=== PATIENT | male | born 1980 | race Caucasian/White ===

== ENCOUNTER 2016-10-14 00:31 | Emergency (ER) | payer OTHER ==
[~2016-10-14] VITALS: Ht 175.3 cm; Wt 63.5 kg
[~2016-10-14 00:31] MED LIST: ABILIFY2 MG ORAL; AMOXIL250 MG ORAL; DILANTIN100 MG ORAL; DILANTIN30 MG ORAL; PANTOPRAZOLE SO40 MG ORAL; QUETIAPINE FUMA25 MG ORAL
[2016-10-14 00:32] VITALS: BP 108/63
[2016-10-14] MEDS ORDERED: PEPCID40 MG PO (01:05)
[2016-10-14 01:15] VITALS: BP 108/63
--- NOTE | 2016-10-14 01:27 | Emergency Room Report ---
History of Present Illness General Chief Complaint: Abdominal Pain Source: Patient Present Illness HPI Patient presents with complaints of abdominal pain Mainly epigastric Reports nausea but no vomiting Denies any chest pain or shortness of breath denies any back or flank pain The discomfort started several days ago Patient does report alcohol ingestion Upon arrival the patient's with the cafeteria And returned eating a bag of hot flaming chips He states that they're not that spicy and that he was feeling hungry Patient is reporting discomfort with the oral intake Denies any fall or trauma Allergies: Coded Allergies: No Known Allergies (Unverified , 09/19/15) Patient History Past Medical History: see triage record Pertinent Family History: none Reviewed Nursing Documentation: PMH: Agreed, PSxH: Agreed Nursing Documentation-PMH Past Medical History: No Stated History Hx Seizures: Yes Review of Systems All Other Systems: negative except mentioned in HPI Physical Exam Vital Signs Date Time Temp Pulse Resp B/P Pulse Ox O2 Delivery O2 Flow Rate FiO2 10/14/16 00:23 107 16 108/63 97 Room Air Sp02 EP Interpretation: reviewed, normal General Appearance: well appearing, no apparent distress Head: normocephalic, atraumatic Eyes: bilateral eye EOMI, bilateral eye PERRL ENT: hearing grossly normal, normal pharynx, TMs + canals normal, uvula midline Neck: full range of motion, supple, no meningismus, no bony tend Respiratory: lungs clear, normal breath sounds, no rhonchi, no respiratory distress, no retraction, no accessory muscle use Cardiovascular #1: normal peripheral pulses, regular rate, rhythm, no edema, no gallop, no JVD, no murmur Gastrointestinal: normal bowel sounds, non tender, soft, no mass, no organomegaly, non-distended, no guarding, no hernia, no pulsatile mass, no rebound Genitourinary: no CVA tenderness Musculoskeletal: normal inspection Neurologic: oriented x3, responsive, research assoc III-XII nml as tested, motor strength/ tone normal, sensory intact Psychiatric: mood/affect normal Skin: normal color, no rash, warm/dry, palpation normal Lymphatic: normal inspection, no adenopathy Medical Decision Making Diagnostic Impression: Primary Impression: Abdominal pain ER Course With the history exam and presentation, multiple differentials considered, including but not limited to appendicitis, gastritis, cholecystitis, diverticulitis Upon arrival the patient left the emergency room to go to the [facility] Patient purchased some chips and is taking oral intake without any discomfort Abdominal exam is fairly benign as well Given the patient's resolution and repeat evaluation He is stable for initial conservative outpatient trial Last Vital Signs Date Time Temp Pulse Resp B/P Pulse Ox O2 Delivery O2 Flow Rate FiO2 10/14/16 00:23 107 16 108/63 97 Room Air Status: improved Disposition: HOME, SELF-CARE Condition: Improved Scripts Famotidine (PEPCID) 40 Mg Tablet 40 MG PO DAILY, #7 TAB 0 Refills Prov: ANGELA STEPHENSON D.O. 10/14/16 Patient Instructions: Abdominal Pain, Adult Additional Instructions: Patient is provided with the discharge instructions notified to follow up with primary doctor in the next 2-3 days otherwise return to the er with any worsening symptoms. ANGELA STEPHENSON D.O. Oct 14, 2016 01:27
[2016-10-15] MEDS ORDERED: PROZAC10 MG ORAL (19:47)
[2016-10-15] MEDS ORDERED: SEROQUEL50 MG ORAL (19:47)
[2016-10-15] MEDS ORDERED: REGLAN10 MG ORAL (23:34)
[2016-10-15] MEDS ORDERED: PROTONIX40 MG ORAL (23:34)
[2016-10-15] MEDS ORDERED: CARAFATE1 G1 ORAL (23:34)
[2016-10-15] MEDS ORDERED: VITAMIN D1000 UNI1 ORAL (23:34)
== END 2016-10-14 01:15 | disposition home or self-care (01) ==
LOC: EDBD 00:31 → EMR 00:56
DX: R10.13 Epigastric pain (principal)
CPT/HCPCS: 99283

== ENCOUNTER 2016-10-15 19:48 | Emergency (ER) | payer OTHER ==
[~2016-10-15] VITALS: Ht 167.6 cm; Wt 70.3 kg
[~2016-10-15 19:48] MED LIST changes: +PEPCID40 MG PO; +PROZAC10 MG ORAL; +SEROQUEL50 MG ORAL
[2016-10-15 20:05] VITALS: BP 146/96
[2016-10-15 20:30] VITALS: BP 146/96
[2016-10-15] MEDS ORDERED: CARAFATE1 G1 ORAL (23:34)
[2016-10-15] MEDS ORDERED: PROTONIX40 MG ORAL (23:34)
[2016-10-15] MEDS ORDERED: REGLAN10 MG ORAL (23:34)
[2016-10-15] MEDS ORDERED: VITAMIN D1000 UNI1 ORAL (23:34)
--- NOTE | 2016-10-16 09:45 | Emergency Room Report ---
History of Present Illness General Chief Complaint: Alcohol Intoxication Source: Medical Record, EMS Present Illness HPI Patient allegedly brought in by EMS for alcohol intoxication. According to the EMS record c/o 12 hours of abdominal pain. Was allegedly uncooperative in field. Apparently placed in W/R. Allergies: Coded Allergies: No Known Allergies (Unverified , 09/19/15) Patient History Past Medical History: see triage record Social History: Reports: alcohol use Social History Narrative gives [place] address Reviewed Nursing Documentation: PMH: Agreed, PSxH: Agreed Nursing Documentation-PMH Hx Seizures: Yes Physical Exam Vital Signs Date Time Temp Pulse Resp B/P Pulse Ox O2 Delivery O2 Flow Rate FiO2 10/15/16 19:42 97.7 80 16 146/96 99 Room Air Sp02 EP Interpretation: reviewed, normal Medical Decision Making Diagnostic Impression: Primary Impression: NSBMD Additional Impressions: Alleged alcohol ingestion Abdominal pain ER Course Patient was not in Department when I looked for patient. Last Vital Signs Date Time Temp Pulse Resp B/P Pulse Ox O2 Delivery O2 Flow Rate FiO2 10/15/16 20:30 97.7 16 146/96 99 Room Air 10/15/16 20:05 89 Disposition: ELOPED Condition: Unknown Referrals: Thomas MANCINI,REFERRING (PCP) Dewey Rae M.D. Oct 16, 2016 09:45
== END 2016-10-15 22:00 | disposition left against medical advice (07) ==
LOC: EDBD 19:48 → EMR 21:33
DX: R10.9 Unspecified abdominal pain (principal); Z53.21 Procedure and treatment not carried out due to patient leaving prior to being seen by health care provider

== ENCOUNTER 2016-10-19 01:54 | Emergency (ER) | payer OTHER ==
[~2016-10-19] VITALS: Ht 175.3 cm; Wt 63.5 kg
[~2016-10-19 01:54] MED LIST changes: +CARAFATE1 G1 ORAL; +PROTONIX40 MG ORAL; +REGLAN10 MG ORAL; +VITAMIN D1000 UNI1 ORAL
[2016-10-19] MEDS ORDERED: UNOBMED (02:00)
[2016-10-19] MEDS ORDERED: Phenytoin 100mg cap ORAL STA (02:07)
[2016-10-19] MEDS ORDERED: Ketorolac 30mg Inj IV ONE (02:15)
--- NOTE | 2016-10-19 02:15 | Emergency Room Report ---
History of Present Illness General Chief Complaint: Alcohol Intoxication Source: Patient Present Illness HPI The patient presents with abdominal pain. Epigastric radiates towards his back. She's also felt nauseated. There's been no vomiting. His stools are loose the patient can he denies any blood or melena. He's had pain like this before and states is secondary to pancreatitis. He has not taken any pain medication at home. These come quite a bit of alcohol this afternoon. He denies ulcers or GERD. He's had some feverish feelings and some chills. He also has a mildly productive cough that's chronic of green phlegm he has he smokes he says. Denies any chest pain or palpitations. The patient last took his seizure medication which is Dilantin 2 days ago. He states that he had a seizure that day. He has not been taking Dilantin because been drinking alcohol. The patient also states his bipolar schizophrenic and has been off his medications. He states he usually takes Seroquel and Risperdal. 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 Reviewed Nursing Documentation: PMH: Agreed, PSxH: Agreed Nursing Documentation-PM History Of Psychiatric Problem: Yes - bipolar Hx Seizures: Yes Review of Systems All Other Systems: negative except mentioned in HPI Physical Exam Vital Signs Date Time Temp Pulse Resp B/P Pulse Ox O2 Delivery O2 Flow Rate FiO2 10/19/16 01:55 98.2 98 20 129/69 99 Room Air Sp02 EP Interpretation: reviewed, normal General Appearance: well appearing, no apparent distress, GCS 15, other - alcohol on breath Head: normocephalic Eyes: bilateral eye PERRL, bilateral eye other ENT: moist mucus membranes - poor dentition Neck: supple Respiratory: lungs clear, normal breath sounds Cardiovascular #1: regular rate, rhythm Cardiovascular #2: 2+ radial (R) Gastrointestinal: normal inspection, normal bowel sounds, no mass, non- distended, no guarding, no rebound, tenderness Musculoskeletal: back normal, gait/station normal, normal range of motion Neurologic: alert, oriented x3, grossly normal Psychiatric: mood/affect normal Skin: normal inspection, warm/dry, other - bites Medical Decision Making Diagnostic Impression: Primary Impression: Abdominal pain Qualified Codes: R10.13 - Epigastric pain Additional Impression: Acute alcoholic intoxication Qualified Codes: F10.129 - Alcohol abuse with intoxication, unspecified ER Course Patient presents with alcohol intoxication and abdominal pain. Differential includes peritonitis, GERD, gastritis, acute ulcer disease, electrolyte abnormality. He also says that he's not been taking his medications. Urgent evaluation is undertaken with labs, and the patient will treated with IV hydration and Toradol as he denies history of ulcer disease. Additional Dilantin level rechecked in the given by mouth Dilantin here. Told patient bleeding and blood count critically low. He understands but refuses rectal exam. Labs also sig for barbiturates. Patient sleeping. States he has dilantin. Discharge pending ambulatory status. Laboratory Tests Test 10/19/16 02:10 White Blood Count 3.1 K/UL (4.8-10.8) L Red Blood Count 3.48 M/UL (4.70-6.10) L Hemoglobin 8.9 G/DL (14.2-18.0) L Hematocrit 28.7 % (42.0-52.0) L Mean Corpuscular Volume 83 FL (80-99) Mean Corpuscular Hemoglobin 25.7 PG (27.0-31.0) L Mean Corpuscular Hemoglobin Concent 31.2 G/DL (32.0-36.0) L Red Cell Distribution Width 17.0 % (11.6-14.8) H Platelet Count 368 K/UL (150-450) Mean Platelet Volume 5.2 FL (6.5-10.1) L Neutrophils (%) (Auto) % (45.0-75.0) Lymphocytes (%) (Auto) % (20.0-45.0) Monocytes (%) (Auto) % (1.0-10.0) Eosinophils (%) (Auto) % (0.0-3.0) Basophils (%) (Auto) % (0.0-2.0) Neutrophils % (Manual) Pending Lymphocytes % (Manual) Pending Platelet Estimate Pending Platelet Morphology Pending Urine Color Pale yellow Urine Appearance Clear Urine pH 7 (4.5-8.0) Urine Specific Jewell 1.005 (1.005-1.035) Urine Protein Negative (NEGATIVE) Urine Glucose (UA) Negative (NEGATIVE) Urine Ketones Negative (NEGATIVE) Urine Occult Blood Negative (NEGATIVE) Urine Nitrite Negative (NEGATIVE) Urine Bilirubin Negative (NEGATIVE) Urine Urobilinogen Normal MG/DL (0.0-1.0) Urine Leukocyte Esterase Negative (NEGATIVE) Sodium Level 144 mEQ/L (135-145) Potassium Level 3.7 mEQ/L (3.4-4.9) Chloride Level 101 mEQ/L (98-107) Carbon Dioxide Level 30 mEQ/L (20-30) Anion Gap 13 (5-15) Blood Urea Nitrogen 8 mg/dL (7-23) Creatinine 0.6 mg/dL (0.7-1.2) L Estimate Glomerular Filtration Rate > 60 mL/min (>60) Glucose Level 101 mg/dL (74-106) Calcium Level 8.4 mg/dL (8.6-10.2) L Total Bilirubin < 0.2 mg/dL (0.0-1.2) Aspartate Amino Transferase (AST) 69 U/L (5-40) H Alanine Aminotransferase (ALT) 31 U/L (3-41) Alkaline Phosphatase 73 U/L (40-129) Total Protein 6.4 g/dL (6.6-8.7) L Albumin 4.1 g/dL (3.5-5.2) Globulin 2.3 g/dL Albumin/Globulin Ratio 1.7 (1.0-2.7) Lipase 57 U/L (< 60) Salicylates Level < 1 mg/dL (10-30) L Urine Opiates Screen Negative (NEGATIVE) Acetaminophen Level < 10 ug/mL (10-30) L Urine Barbiturates Screen Positive (NEGATIVE) H Phenytoin (Dilantin) Level < 0.8 ug/mL (10-20) L Phencyclidine (PCP) Screen Negative (NEGATIVE) Urine Amphetamines Screen Negative (NEGATIVE) Urine Benzodiazepines Screen Negative (NEGATIVE) Urine Cocaine Screen Negative (NEGATIVE) Urine Marijuana (THC) Screen Negative (NEGATIVE) Serum Alcohol 469 mg/dL Last Vital Signs Date Time Temp Pulse Resp B/P Pulse Ox O2 Delivery O2 Flow Rate FiO2 10/19/16 07:47 98.7 85 14 109/66 96 Room Air Status: improved Disposition: HOME, SELF-CARE Condition: Improved Scripts Famotidine (PEPCID) 20 Mg Tablet 20 MG ORAL DAILY, #30 TAB 0 Refills Prov: Dewey Rae M.D. 10/19/16 Acetaminophen (Tylenol) 325 Mg Tablet 650 MG ORAL Q6H Y for Prn Pain/Headache/Temp > 101, #30 TAB 0 Refills Prov: Dewey Rae M.D. 10/19/16 Dewey Rae M.D. Oct 19, 2016 02:15
[2016-10-19] MEDS ORDERED: Tubing IV Cassette IV ONE (02:20)
[2016-10-19 02:27] LABS: APPEARANCE,URINE CLEAR; KETONES,URINE NEGATIVE (NEGATIVE); LEUKOCYTE ESTERASE ,URINE NEGATIVE (NEGATIVE); MEAN CORPUSCULAR HEMOGLOBIN 25.7 PG (27.0-31.0); MEAN CORPUSCULAR HGB CONC 31.2 G/DL (32.0-36.0); MEAN CORPUSCULAR VOLUME 83 FL (80-99); MEAN PLATELET VOLUME 5.2 FL (6.5-10.1); NITRITE,URINE NEGATIVE (NEGATIVE); PH,URINE 7 (4.5-8.0); PLATELET COUNT 368 K/UL (150-450); PROTEIN,URINE NEGATIVE (NEGATIVE); RED BLOOD COUNT 3.48 M/UL (4.70-6.10); UROBILINOGEN,URINE NORMAL MG/DL (0.0-1.0); WHITE BLOOD COUNT 3.1 K/UL (4.8-10.8)
[2016-10-19 02:38] LABS: ACETAMINOPHEN < 10 ug/mL (10-30); ALANINE AMINOTRANSFERASE 31 U/L (3-41); ALBUMIN/GLOBULIN RATIO 1.7 (1.0-2.7); ANION GAP 13 (5-15); ASPARTATE AMINO TRANSFERASE 69 U/L (5-40); CALCIUM 8.4 mg/dL (8.6-10.2); CARBON DIOXIDE 30 mEQ/L (20-30); CHLORIDE 101 mEQ/L (98-107); CREATININE 0.6 mg/dL (0.7-1.2); GLOMERULAR FILTRATION RATE > 60 mL/min (>60); HEMOLYSIS 1; LIPASE 57 U/L (< 60); POTASSIUM 3.7 mEQ/L (3.4-4.9); SODIUM 144 mEQ/L (135-145); TOTAL PROTEIN 6.4 g/dL (6.6-8.7)
[2016-10-19 02:44] LABS: ALCOHOL 469 mg/dL
[2016-10-19 03:40] VITALS: BP 105/70
[2016-10-19] MEDS ORDERED: PEPCID20 MG ORAL (04:50)
[2016-10-19] MEDS ORDERED: TYLENOL325 MG ORAL (04:50)
[2016-10-19 05:31] VITALS: BP 100/56
[2016-10-19 07:06] VITALS: BP 109/66
[2016-10-19 07:47] VITALS: BP 109/66
[2016-10-19 08:45] LABS: ANISOCYTOSIS 1+; BAND NEUTROPHILS % (MANUAL) 0 % (0-8); BASOPHILS % (MANUAL) 1 % (0-2); EOSINOPHILS % (MANUAL) 7 % (0-3); HYPOCHROMASIA 1+; LYMPHOCYTES % (MANUAL) 40 % (20-45); NEUTROPHILS % (MANUAL) 47 % (45-75); PLATELET ESTIMATE ADEQUATE; PLATELET MORPHOLOGY NORMAL; TOTAL CELLS COUNTED 100
[2016-10-20] MEDS ORDERED: ZOFRAN ODT4 MG ORAL ×2 (18:48→21:18)
[2016-10-20] MEDS ORDERED: PEPCID AC20 M2 PO (18:48)
[2016-10-20] MEDS ORDERED: PEPCID20 MG ORAL (21:18)
== END 2016-10-19 07:57 | disposition home or self-care (01) ==
LOC: EDUNIT# 01:54 → EDBD 01:54 → EMR 02:37
DX: R10.13 Epigastric pain (principal); F10.129 Alcohol abuse with intoxication, unspecified; R11.0 Nausea; F17.200 Nicotine dependence, unspecified, uncomplicated; F12.929 Cannabis use, unspecified with intoxication, unspecified; R05 Cough; G40.909 Epilepsy, unspecified, not intractable, without status epilepticus; Z86.59 Personal history of other mental and behavioral disorders; Z59.0 Homelessness
CPT/HCPCS: 36415; 80053; 80185; 80300; 80329; 81003; 83690; 85007; 85025; 96361; 96374; 96375; 99284; J1885; J2405

== ENCOUNTER 2016-10-20 17:43 | Emergency (ER) | payer OTHER ==
[~2016-10-20] VITALS: Ht 172.7 cm; Wt 59.0 kg
[~2016-10-20 17:43] MED LIST changes: +PEPCID20 MG ORAL; +TYLENOL325 MG ORAL; +UNOBMED
[2016-10-20 17:45] VITALS: BP 130/76
--- NOTE | 2016-10-20 17:50 | Emergency Room Report ---
History of Present Illness General Chief Complaint: Alcohol Intoxication Source: Patient, EMS Present Illness HPI Paramedics reported the patient was at [facility] Appear to be intoxicated and therefore was kicked out of the restaurant At that point patient had the complaining of epigastric discomfort He also does report alcohol ingestion including beer Here he does complain of epigastric discomfort nausea Denies any fevers or chills denies any chest pain or shortness of breath Denies any back or flank pain patient has a burning sensation epigastric Allergies: Coded Allergies: No Known Allergies (Unverified , 10/19/16) Patient History Past Medical History: see triage record Pertinent Family History: none Reviewed Nursing Documentation: PMH: Agreed, PSxH: Agreed Nursing Documentation-PMH Past Medical History: No Stated History Hx Seizures: Yes Review of Systems All Other Systems: negative except mentioned in HPI Physical Exam Vital Signs Date Time Temp Pulse Resp B/P Pulse Ox O2 Delivery O2 Flow Rate FiO2 10/20/16 17:36 97.9 74 16 130/76 98 Room Air Sp02 EP Interpretation: reviewed, normal General Appearance: well appearing - However appears mildly disheveled, patient was also verbally abusive with the staff, no apparent distress Head: normocephalic, atraumatic Eyes: bilateral eye EOMI, bilateral eye PERRL ENT: hearing grossly normal, normal pharynx, TMs + canals normal, uvula midline Neck: full range of motion, supple, no meningismus, no bony tend Respiratory: lungs clear, normal breath sounds, no rhonchi, no respiratory distress, no retraction, no accessory muscle use Cardiovascular #1: normal peripheral pulses, regular rate, rhythm, no edema, no gallop, no JVD, no murmur Gastrointestinal: normal bowel sounds, non tender, soft, no mass, no organomegaly, non-distended, no guarding, no hernia, no pulsatile mass, no rebound Musculoskeletal: normal inspection Neurologic: oriented x3, responsive, motor strength/tone normal, sensory intact Psychiatric: mood/affect normal Skin: no rash, warm/dry, palpation normal Lymphatic: normal inspection, no adenopathy Medical Decision Making Diagnostic Impression: Primary Impression: Abdominal pain ER Course Patient has multiple differentials considered Including but not limited to cholecystitis, hepatitis, gastritis Patient however is taking oral intake States that he is hungry Was no signs of any acute distress patient was provided with Zofran and observed Was told into the patient's workup that he had walked out of the emergency room Patient appears to be stable hemodynamically on last eval And will have close outpatient followup , Last Vital Signs Date Time Temp Pulse Resp B/P Pulse Ox O2 Delivery O2 Flow Rate FiO2 10/20/16 17:36 97.9 74 16 130/76 98 Room Air Status: improved Disposition: HOME, SELF-CARE Condition: Improved Scripts Ondansetron Odt* (ZOFRAN ODT*) 4 Mg Tab.rapdis 4 MG ORAL Q6H Y for Nausea & Vomiting, #10 TAB 0 Refills Prov: ANGELA STEPHENSON D.O. 10/20/16 Famotidine (PEPCID AC) 20 Mg Tablet 20 MG PO DAILY for 7 Days, TAB Prov: ANGELA STEPHENSON D.O. 10/20/16 Additional Instructions: Please note the patient left before getting prescription or discharge instructions ANGELA STEPHENSON D.O. Oct 20, 2016 17:50
[2016-10-20] MEDS ORDERED: ZOFRAN ODT4 MG ORAL ×2 (18:48→21:18)
[2016-10-20] MEDS ORDERED: PEPCID AC20 M2 PO (18:48)
[2016-10-20] MEDS ORDERED: Dicyclomine HCl 10mg/5ml oral soln ORAL ONE (19:00)
[2016-10-20] MEDS ORDERED: Lidocaine 2% Visc 15ml soln ORAL ONE (19:00)
[2016-10-20] MEDS ORDERED: Mylanta II UD 30ml ORAL ONE (19:00)
[2016-10-20 19:05] VITALS: BP 130/80
[2016-10-20] MEDS ORDERED: PEPCID20 MG ORAL (21:18)
== END 2016-10-20 19:05 | disposition home or self-care (01) ==
LOC: EDBD 17:43 → EMR 18:00
DX: R10.9 Unspecified abdominal pain (principal); R11.0 Nausea
CPT/HCPCS: 99282

== ENCOUNTER 2016-10-20 21:09 | Emergency (ER) | payer OTHER ==
[~2016-10-20] VITALS: Ht 175.3 cm; Wt 63.5 kg
[~2016-10-20 21:09] MED LIST changes: +PEPCID AC20 M2 PO; +ZOFRAN ODT4 MG ORAL
[2016-10-20] MEDS ORDERED: PEPCID20 MG ORAL (21:18)
[2016-10-20] MEDS ORDERED: ZOFRAN ODT4 MG ORAL (21:18)
--- NOTE | 2016-10-20 21:20 | Emergency Room Report ---
History of Present Illness General Source: Patient Present Illness HPI Patient was recently here Left before getting any paperwork And now has been brought back by paramedics Sleeping on the sidewalk Patient denies any headache States that his stomach pain from before was better as well He reports that he does not have any desire to go through rehabilitation He wants to continue drinking Denies any other fall or trauma since leaving the hospital Allergies: Coded Allergies: No Known Allergies (Unverified , 10/19/16) Patient History Past Medical History: see triage record Pertinent Family History: none Reviewed Nursing Documentation: PMH: Agreed, PSxH: Agreed Nursing Documentation-PMH Hx Seizures: Yes Review of Systems All Other Systems: negative except mentioned in HPI Physical Exam Sp02 EP Interpretation: reviewed, normal General Appearance: no apparent distress Head: normocephalic, atraumatic Eyes: bilateral eye EOMI, bilateral eye PERRL ENT: normal pharynx, no angioedema Neck: supple Respiratory: lungs clear, normal breath sounds Cardiovascular #1: regular rate, rhythm, no edema Gastrointestinal: soft, no mass Musculoskeletal: normal inspection Neurologic: alert, oriented x3, responsive Skin: other - Patient is disheveled Lymphatic: no adenopathy Medical Decision Making Diagnostic Impression: Primary Impression: Abdominal pain Additional Impression: Alcohol abuse ER Course Patient was just recently seen by myself in the emergency room Patient was now found sleeping on the side of the street here The patient is awake alert Patient was laughing and joking about leaving the emergency room just recently Does not appear to be in any acute distress Was allowed to rest and was given his paperwork along with prescriptions that he did not take on the initial visit Status: improved Disposition: HOME, SELF-CARE Condition: Stable Scripts Famotidine (PEPCID) 20 Mg Tablet 20 MG ORAL DAILY, #7 TAB 0 Refills Prov: ANGELA STEPHENSON.O. 10/20/16 Ondansetron Odt* (ZOFRAN ODT*) 4 Mg Tab.rapdis 4 MG ORAL Q6H Y for Nausea & Vomiting, #12 TAB 0 Refills Prov: ANGELA STEPHENSON D.O. 10/20/16 Patient Instructions: Alcohol Abuse and Nutrition, Abdominal Pain, Adult Additional Instructions: Patient is provided with the discharge instructions notified to follow up with primary doctor in the next 2-3 days otherwise return to the er with any worsening symptoms. ANGELA STEPHENSON D.O. Oct 20, 2016 21:20
[2016-10-20 21:32] VITALS: BP 128/75
[2016-10-20 22:40] VITALS: BP 128/75
== END 2016-10-20 22:38 | disposition home or self-care (01) ==
LOC: EDBD 21:09 → EMR 21:42
DX: R10.9 Unspecified abdominal pain (principal); F10.10 Alcohol abuse, uncomplicated
CPT/HCPCS: 99282

== ENCOUNTER 2017-01-09 13:08 | Emergency (ER) | payer SELFPAY ==
[~2017-01-09] VITALS: Ht 175.3 cm; Wt 63.5 kg
[2017-01-09 13:10] VITALS: BP 145/95
--- NOTE | 2017-01-09 13:27 | Emergency Room Report ---
History of Present Illness General Chief Complaint: Abdominal Pain Source: EMS Present Illness HPI The patient is a 36-year-old male brought in by ambulance for alcohol intoxication and abdominal pain. The patient was found sleeping on the streets with a large bottle of vodka beside him. The patient has been seen in this emergency department in the past for alcohol intoxication. Patient states abdominal pain is a 5/10 dull ache to the mid upper abdomen and does not radiate. The patient states that he has had 2 episodes of diarrhea since this morning. Patient denies any other symptoms including N, V, CP, SOB, hemetemesis , melena, hematochezia, fever, chills Allergies: Coded Allergies: No Known Allergies (Unverified , 10/19/16) Patient History Past Medical History: see triage record Pertinent Family History: none Social History: Reports: alcohol use Reviewed Nursing Documentation: PMH: Agreed, PSxH: Agreed Nursing Documentation-PMH Past Medical History: No History, Except For History Of Psychiatric Problem: Yes Hx Seizures: Yes Review of Systems All Other Systems: negative except mentioned in HPI Physical Exam Vital Signs Date Time Temp Pulse Resp B/P Pulse Ox O2 Delivery O2 Flow Rate FiO2 01/09/17 13:03 98.8 93 15 145/95 98 Room Air Sp02 EP Interpretation: reviewed, normal General Appearance: no apparent distress, alert, GCS 15, non-toxic Head: normocephalic, atraumatic Eyes: bilateral eye PERRL, bilateral eye normal inspection ENT: hearing grossly normal, normal pharynx, no angioedema, normal voice Neck: full range of motion, supple/symm/no masses Respiratory: chest non-tender, lungs clear, normal breath sounds, speaking full sentences Cardiovascular #1: regular rate, rhythm, no edema Gastrointestinal: normal bowel sounds, soft, no mass, no guarding, tenderness - epigastric Rectal: deferred Musculoskeletal: back normal, gait/station normal, normal range of motion, non- tender Neurologic: alert, responsive, motor strength/tone normal, sensory intact, speech normal Psychiatric: judgement/insight normal, memory normal, mood/affect normal, no suicidal/homicidal ideation Skin: normal color, no rash, warm/dry, well hydrated Lymphatic: no adenopathy Medical Decision Making PA Attestation Dr. Camilo is my supervising physician. Patient management was discussed with my supervising physician Diagnostic Impression: Primary Impression: Acute alcoholic intoxication Additional Impression: Abdominal pain ER Course The patient is a 36-year-old male brought in by ambulance for alcohol intoxication and abdominal pain. \ DDx considered but not limited to: acute alcohol intoxication, hepatic encephalopathy, drug overdose, hypoglycemia, psychosis Physical exam: Vitals are within normal limits. No apparent distress. Patient is lethargic. Head is normocephalic atraumatic. Pupils are equally round and reactive to light The patient is arousable by touch or name. Lungs are clear to auscultation bilaterally. Abd: soft. No mass. Non distended. Normal BS. + TTP over epigastric region Otherwise exam is unremarkable The pt is given pepcid and zofran The patient is given time to rest in the emergency department. The patient is discharged home when he is A&O x 3 and gait is steady and given ER precautions. Patient was given advice to stop drinking alcohol. Last Vital Signs Date Time Temp Pulse Resp B/P Pulse Ox O2 Delivery O2 Flow Rate FiO2 01/09/17 13:10 98.8 74 15 145/95 98 Room Air Status: improved Disposition: HOME, SELF-CARE Condition: Improved Referrals: NOT CHOSEN IPA/,REFERRING (PCP) STEVE SLAUGHTER Jan 09, 2017 13:27
[2017-01-09 15:23] VITALS: BP 138/85
[2017-01-09 15:26] VITALS: BP 138/85
== END 2017-01-09 15:27 | disposition home or self-care (01) ==
LOC: EDBD 13:08 → EMR 13:23
DX: F10.129 Alcohol abuse with intoxication, unspecified (principal); R10.9 Unspecified abdominal pain
CPT/HCPCS: 99282

== ENCOUNTER 2017-01-09 17:39 | Emergency (ER) | payer SELFPAY ==
[~2017-01-09] VITALS: Ht 175.3 cm; Wt 68.0 kg
--- NOTE | 2017-01-09 17:45 | Emergency Room Report ---
History of Present Illness General Chief Complaint: Alcohol Intoxication Source: EMS Present Illness HPI 36YOM BIBEMS after [employer] called for patient. He was just discharged by PA 90 minutes prior after observation for acute ETOH intox. Patient was DCed when sober, went to [employer]. EMS found patient eating [employer] food. Patient denies ETOH, drug use, trauma, since discharge 90 minutes prior. See PA HPI from previous visit for additional information. Allergies: Coded Allergies: No Known Allergies (Unverified , 10/19/16) Patient History Past Medical History: none Past Surgical History: none Pertinent Family History: none Social History: Reports: alcohol use Immunizations: UTD Reviewed Nursing Documentation: PMH: Agreed, PSxH: Agreed Nursing Documentation-PMH Past Medical History: No Stated History Hx Seizures: Yes - epilesy Review of Systems All Other Systems: negative except mentioned in HPI Physical Exam Vital Signs Date Time Temp Pulse Resp B/P Pulse Ox O2 Delivery O2 Flow Rate FiO2 01/09/17 17:38 98.2 98 16 137/98 99 Sp02 EP Interpretation: reviewed, normal General Appearance: normal inspection, well appearing, no apparent distress, alert, GCS 15, non-toxic Head: normocephalic, atraumatic Eyes: bilateral eye EOMI, bilateral eye PERRL ENT: normal ENT inspection, hearing grossly normal, normal voice Neck: normal inspection, full range of motion, supple, no bony tend Respiratory: normal inspection, lungs clear, normal breath sounds, no respiratory distress, no retraction, no wheezing Cardiovascular #1: regular rate, rhythm, no edema Gastrointestinal: normal inspection, normal bowel sounds, non tender, soft, no guarding, no hernia Genitourinary: no CVA tenderness Musculoskeletal: normal inspection, back normal, normal range of motion, Celi' s Sign negative Neurologic: normal inspection, alert, oriented x3, responsive, fire alarm technician III-XII nml as tested, motor strength/tone normal, speech normal Psychiatric: normal inspection, judgement/insight normal, mood/affect normal Skin: normal inspection, normal color, no rash Lymphatic: normal inspection Medical Decision Making Diagnostic Impression: Primary Impression: Encounter for medical screening examination ER Course Patient informed he was seen, evaluated and cleared for discharge from the ER previously. Has been provided an additional medical screening exam as per EMTALA law and determined to not be having an emergency medical condition requiring furhter evaluation or treatment in the Emergency Department. Advised to follow up at a medical clinic or with your primary care doctor as needed. Last Vital Signs Date Time Temp Pulse Resp B/P Pulse Ox O2 Delivery O2 Flow Rate FiO2 01/09/17 17:38 98.2 98 16 137/98 99 Status: improved Disposition: HOME, SELF-CARE Condition: Improved Patient Instructions: Alcohol Intoxication, [id number] Additional Instructions: - You were seen, evaluated and cleared for discharge from the ER previously. - You have been provided an additional medical screening exam as per EMTALA law and determined to not be having an emergency medical condition requiring furhter evaluation or treatment in the Emergency Department. - Please follow up at a medical clinic or with your primary care doctor as needed. JESSICA CRUZ M.D. Jan 09, 2017 17:45
[2017-01-09 17:47] VITALS: BP 137/98
[2017-01-09 17:52] VITALS: BP 137/98
== END 2017-01-09 18:28 | disposition home or self-care (01) ==
LOC: EDBD 17:39 → EMR 17:50
DX: F10.129 Alcohol abuse with intoxication, unspecified (principal)
CPT/HCPCS: 99281

== ENCOUNTER 2017-01-10 16:39 | Emergency (ER) | payer SELFPAY ==
[~2017-01-10] VITALS: Ht 175.3 cm; Wt 77.1 kg
[2017-01-10 16:35] VITALS: BP 140/70
[~2017-01-10 16:39] MED LIST changes: -PRILOSEC OTC20 MG ORAL
--- NOTE | 2017-01-10 18:07 | Emergency Room Report ---
History of Present Illness General Chief Complaint: Alcohol Intoxication Source: Patient, EMS Present Illness HPI 36YOM BIBEMS after [employer] called for public disturbance. Patient was DCed from ER ~1hour prior. Patient drank rest of bottle of vodka he had with him in between visit. This is patient's 5th visit to our ED in 2 days. He denies trauma, other complaints. [employer] called to discuss 911 abuse and repeated visits by patient. Allergies: Coded Allergies: No Known Allergies (Unverified , 10/19/16) Patient History Past Medical History: none Past Surgical History: none Pertinent Family History: none Social History: Reports: alcohol use, Denies: drug use, smoking Immunizations: UTD Reviewed Nursing Documentation: PMH: Agreed, PSxH: Agreed Nursing Documentation-PMH Past Medical History: No History, Except For Hx Seizures: Yes Review of Systems All Other Systems: negative except mentioned in HPI Physical Exam Vital Signs Date Time Temp Pulse Resp B/P Pulse Ox O2 Delivery O2 Flow Rate FiO2 01/10/17 16:30 98.1 90 20 140/70 100 Room Air Sp02 EP Interpretation: reviewed, normal General Appearance: normal inspection, well appearing, no apparent distress, alert, GCS 15, non-toxic, other Head: normocephalic, atraumatic Eyes: bilateral eye EOMI, bilateral eye PERRL ENT: normal ENT inspection, hearing grossly normal, normal voice Neck: normal inspection, full range of motion, supple, no bony tend Respiratory: normal inspection, lungs clear, normal breath sounds, no respiratory distress, no retraction, no wheezing Cardiovascular #1: regular rate, rhythm, no edema Gastrointestinal: normal inspection, normal bowel sounds, non tender, soft, no guarding, no hernia Genitourinary: no CVA tenderness Musculoskeletal: normal inspection, back normal, normal range of motion, Celi' s Sign negative Neurologic: normal inspection, alert, oriented x3, responsive, information coordinator III-XII nml as tested, speech normal Psychiatric: normal inspection Skin: normal inspection Medical Decision Making Diagnostic Impression: Primary Impression: Acute alcoholic intoxication Qualified Codes: F10.120 - Alcohol abuse with intoxication, uncomplicated ER Course Patient observed for ETOH intoxication again. VSS. Afebrile Atraumatic No complaints DC home Last Vital Signs Date Time Temp Pulse Resp B/P Pulse Ox O2 Delivery O2 Flow Rate FiO2 01/10/17 16:35 98.1 89 21 140/70 100 Room Air Status: improved Disposition: HOME, SELF-CARE Condition: Improved Referrals: NOT CHOSEN IPA/MD,REFERRING (PCP) Patient Instructions: Medical Screening Exam Additional Instructions: - You were seen, evaluated and cleared for discharge from the ER previously. - You have been provided an additional medical screening exam as per EMTALA law and determined to not be having an emergency medical condition requiring furhter evaluation or treatment in the Emergency Department. - Please follow up at a medical clinic or with your primary care doctor as needed. JESSICA CRUZ M.D. Jan 10, 2017 18:07
[2017-01-10 20:02] VITALS: BP 135/76
[2017-01-10 20:30] VITALS: BP 135/76
== END 2017-01-10 20:31 | disposition home or self-care (01) ==
LOC: EDBD 16:39 → EMR 17:06
DX: F10.129 Alcohol abuse with intoxication, unspecified (principal)
CPT/HCPCS: 99282

== ENCOUNTER → 2017-01-10 | Emergency (ER) | payer SELFPAY ==
[~2017-01-10] VITALS: Ht 172.7 cm; Wt 72.6 kg
[~2017-01-10] MED LIST changes: +PRILOSEC OTC20 MG ORAL
[2017-01-10 14:04] VITALS: BP 130/86
--- NOTE | 2017-01-11 08:02 | Emergency Room Report ---
History of Present Illness General Chief Complaint: Alcohol Intoxication Source: EMS Present Illness Allergies: Coded Allergies: No Known Allergies (Unverified , 10/19/16) Nursing Documentation-[facility] Past Medical History: No History, Except For Hx Seizures: Yes Physical Exam Vital Signs Date Time Temp Pulse Resp B/P Pulse Ox O2 Delivery O2 Flow Rate FiO2 01/10/17 14:04 80 18 130/86 100 Room Air Medical Decision Making Diagnostic Impression: Primary Impression: lwbs Additional Impression: Alcohol abuse ER Course patient brought in by EMS for alcohol intoxication. 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 patient placed in waiting room. patient walked out from waiting room. Last Vital Signs Date Time Temp Pulse Resp B/P Pulse Ox O2 Delivery O2 Flow Rate FiO2 01/10/17 14:04 80 18 130/86 100 Room Air Status: unchanged Disposition: LEFT W/OUT BEING SEEN Condition: Unknown Referrals: NOT CHOSEN DAVID/,REFERRING (PCP) ANTELMO AKINS M.D. Jan 11, 2017 08:02
== END | disposition left against medical advice (07) ==
LOC: EDUNIT# 13:24 → EDBD 13:27 → EMR 13:29
DX: F10.129 Alcohol abuse with intoxication, unspecified (principal); Z53.21 Procedure and treatment not carried out due to patient leaving prior to being seen by health care provider
CPT/HCPCS: 99282

== ENCOUNTER 2017-01-14 20:03 | Emergency (ER) | payer SELFPAY ==
[~2017-01-14] VITALS: Ht 162.6 cm; Wt 59.0 kg
[2017-01-14 23:30] VITALS: BP 112/68
--- NOTE | 2017-01-15 02:47 | Emergency Room Report ---
History of Present Illness General Chief Complaint: Alcohol Intoxication Source: Patient Present Illness Allergies: Coded Allergies: No Known Allergies (Unverified , 10/19/16) UNABLE TO ASSESS (Unverified , 01/14/17) Nursing Documentation-[facility] Past Medical History Deferred: Pt Cognitively Impaired Hx Seizures: Yes Physical Exam Vital Signs Date Time Temp Pulse Resp B/P Pulse Ox O2 Delivery O2 Flow Rate FiO2 01/14/17 20:00 99.0 72 20 131/76 99 Room Air Medical Decision Making Diagnostic Impression: Primary Impression: Acute alcoholic intoxication Qualified Codes: F10.120 - Alcohol abuse with intoxication, uncomplicated ER Course Received signout from Dr Elliott at 10pm for dispo when sober Patient slept in stretcher all night Serial vital signs were done, patient in no acute distress Frequent visits here for similar issue recently including abuse of 911 system by patient DC in morning Last Vital Signs Date Time Temp Pulse Resp B/P Pulse Ox O2 Delivery O2 Flow Rate FiO2 01/14/17 23:30 95 14 112/68 97 Room Air 01/14/17 20:00 99.0 Status: improved Disposition: HOME, SELF-CARE Referrals: NOT CHOSEN DAVID/,REFERRING (PCP) JESSICA CRUZ M.D. Jan 15, 2017 02:47
[2017-01-15 04:38] VITALS: BP 154/83
--- NOTE | 2017-01-15 22:47 | Emergency Room Report ---
History of Present Illness General Chief Complaint: Alcohol Intoxication Source: Patient Present Illness HPI 36-year-old male presents ED for alcohol intoxication. Patient was found on street. Bystanders called 911. Patient is well known to [facility] has been here multiple times for alcohol intoxication. No reported head injury. He denies drug use. No other aggravating or relieving factors. Denies any other associated symptoms Allergies: Coded Allergies: No Known Allergies (Unverified , 10/19/16) UNABLE TO ASSESS (Unverified , 01/14/17) Patient History Past Medical History: none Past Surgical History: none Pertinent Family History: none Social History: Denies: alcohol use, drug use, smoking Immunizations: UTD Reviewed Nursing Documentation: PMH: Agreed, PSxH: Agreed Nursing Documentation-PMH Past Medical History Deferred: Pt Cognitively Impaired Hx Seizures: Yes Review of Systems All Other Systems: negative except mentioned in HPI Physical Exam Vital Signs Date Time Temp Pulse Resp B/P Pulse Ox O2 Delivery O2 Flow Rate FiO2 01/14/17 20:00 99.0 72 20 131/76 99 Room Air Sp02 EP Interpretation: reviewed, normal General Appearance: other - intoxicated Head: normocephalic, atraumatic Eyes: bilateral eye PERRL, bilateral eye normal inspection ENT: hearing grossly normal, normal pharynx, no angioedema, normal voice Neck: full range of motion, supple/symm/no masses Respiratory: chest non-tender, lungs clear, normal breath sounds, speaking full sentences Cardiovascular #1: regular rate, rhythm, no edema Cardiovascular #2: 2+ carotid (R), 2+ carotid (L), 2+ radial (R), 2+ radial (L) , 2+ dorsalis pedis (R), 2+ dorsalis pedis (L) Gastrointestinal: normal bowel sounds, non tender, soft, non-distended, no guarding, no rebound Rectal: deferred Genitourinary: normal inspection, no CVA tenderness Musculoskeletal: back normal, gait/station normal, normal range of motion, non- tender Neurologic: other - intoxicated Psychiatric: other - intoxicated Reflexes: 3+ bicep (R), 3+ bicep (L), 3+ tricep (R), 3+ tricep (L), 3+ knee (R) , 3+ knee (L) Skin: normal color, no rash, warm/dry, well hydrated Lymphatic: no adenopathy Medical Decision Making Diagnostic Impression: Primary Impression: Acute alcoholic intoxication Qualified Codes: F10.120 - Alcohol abuse with intoxication, uncomplicated ER Course Hospital Course 36-year-old male presents to ED status post EtOH intoxication. Clinical course Patient placed on stretcher. Given that patient is able to provide an adequate history, I see no need to check blood work or place an IV. Patient allowed to sleep. My assessment shows no evidence of SI/HI requiring psychiatric evaluation. Patient will be signed out to Dr. Ayoub pending sobriety and reassessment Last Vital Signs Date Time Temp Pulse Resp B/P Pulse Ox O2 Delivery O2 Flow Rate FiO2 01/15/17 04:38 92 14 154/83 98 Room Air 01/15/17 04:38 97.4 Status: improved Disposition: HOME, SELF-CARE Condition: Improved Referrals: NOT CHOSEN IPA/,REFERRING (PCP) Patient Instructions: Alcohol Intoxication, [id number] ANTELMO AKINS M.D. Jan 15, 2017 22:47
== END 2017-01-15 04:41 | disposition home or self-care (01) ==
LOC: EDBD 20:03 → EMR 20:33
DX: F10.120 Alcohol abuse with intoxication, uncomplicated (principal)
CPT/HCPCS: 99284

== ENCOUNTER 2017-01-15 18:21 | Emergency (ER) | payer SELFPAY ==
[~2017-01-15] VITALS: Ht 175.3 cm; Wt 72.6 kg
[2017-01-15 18:52] VITALS: BP_SYST 1; BP_SYST 128; BP_DIAS 1; BP_DIAS 2
--- NOTE | 2017-01-15 21:50 | Emergency Room Report ---
History of Present Illness General Chief Complaint: Alcohol Intoxication Source: Medical Record Present Illness HPI The patient is a 36-year-old male presenting for alcohol intoxication and abdominal pain. The patient was brought in by ambulance. The patient is well- known to this emergency department and has been seen more than 5 times within the past 3 days for alcohol intoxication. The patient states that he is in the emergency department to receive morphine. Allergies: Coded Allergies: No Known Allergies (Unverified , 10/19/16) UNABLE TO ASSESS (Unverified , 01/14/17) Patient History Past Medical History: see triage record Pertinent Family History: none Social History: Reports: alcohol use Reviewed Nursing Documentation: PMH: Agreed, PSxH: Agreed Nursing Documentation-PMH History Of Psychiatric Problem: Yes - ETOH abuse Hx Seizures: Yes Review of Systems All Other Systems: negative except mentioned in HPI Physical Exam Vital Signs Date Time Temp Pulse Resp B/P Pulse Ox O2 Delivery O2 Flow Rate FiO2 01/15/17 18:24 98.6 84 16 128/2 99 Room Air Sp02 EP Interpretation: reviewed, normal General Appearance: no apparent distress, alert, GCS 15, non-toxic, lethargic Head: normocephalic, atraumatic Eyes: bilateral eye PERRL, bilateral eye normal inspection ENT: hearing grossly normal, normal pharynx, no angioedema, normal voice Gastrointestinal: normal bowel sounds, non tender, soft, non-distended, no guarding, no rebound Neurologic: alert, responsive, sensory intact Skin: normal color, no rash, warm/dry, well hydrated Lymphatic: no adenopathy Medical Decision Making PA Attestation Dr. Underwood is my supervising physician. Patient management was discussed with my supervising physician Diagnostic Impression: Primary Impression: Alcohol abuse ER Course The patient is a 36-year-old male presenting for alcohol intoxication and abdominal pain DDx considered but not limited to: acute alcohol intoxication, hepatic encephalopathy, drug overdose, hypoglycemia, psychosis Physical exam: Vitals are within normal limits. No apparent distress. Patient is lethargic. Head is normocephalic atraumatic. Pupils are equally round and reactive to light The patient is arousable by touch or name. Lungs are clear to auscultation bilaterally. No abnormal tenderness. Abdomen is soft. Otherwise exam is unremarkable The patient is given time to rest in the emergency department. Upon reevaluation, patient is to drinking beers. Patient is unable to say how many. The patient is able to ambulate well and is asking to leave at this time. The patient is alert and oriented. The patient be discharged home and given ER precautions. Patient was given advice on alcohol addiction Last Vital Signs Date Time Temp Pulse Resp B/P Pulse Ox O2 Delivery O2 Flow Rate FiO2 01/15/17 18:52 1/01/15/17 18:52 98.6 16 99 Room Air 01/15/17 18:24 84 Status: improved Disposition: HOME, SELF-CARE Condition: Improved Referrals: NOT CHOSEN IPA/MD,REFERRING (PCP) Patient Instructions: Alcohol Intoxication Additional Instructions: My findings were discussed with the patient. Patient was counseled to seek help for alcohol abuse. Patient is stable for discharge, is alert and oriented, and can ambulate without difficulty. Patient is asked to return to ED if he experiences chest pain, abdominal pain, dizziness, falls down, or for any reason. STEVE SLAUGHTER Jan 15, 2017 21:50
== END 2017-01-15 18:50 | disposition home or self-care (01) ==
LOC: EDBD 18:21 → EMR 18:50
DX: F10.10 Alcohol abuse, uncomplicated (principal)
CPT/HCPCS: 99284

== ENCOUNTER 2017-01-19 22:01 | Emergency (ER) | payer MEDICAID ==
[~2017-01-19] VITALS: Ht 175.3 cm; Wt 63.5 kg
[2017-01-19 22:13] VITALS: BP 122/55
[2017-01-19] MEDS ORDERED: PRILOSEC OTC20 MG ORAL (23:54)
--- NOTE | 2017-01-19 23:55 | Emergency Room Report ---
History of Present Illness General Chief Complaint: Abdominal Pain Source: Patient, Medical Record, EMS Present Illness HPI Is a 36-year-old male who is an alcoholic. He said his been drinking for 12 years. He presents with abdominal pain. He's been here multiple times already. Has been here half-dozen times in the last couple weeks alone. He was at a nearby fast food restaurant complaining abdominal pain. He called 911. No nausea no vomiting. No fever or chills. No diarrhea. It is 9/10 and diffuse in nature. Allergies: Coded Allergies: No Known Allergies (Unverified , 10/19/16) UNABLE TO ASSESS (Unverified , 01/14/17) Patient History Past Medical History: see triage record, old chart reviewed Past Surgical History: other Pertinent Family History: none Social History: Reports: alcohol use Immunizations: other Reviewed Nursing Documentation: PMH: Agreed, PSxH: Agreed Nursing Documentation-PMH Hx Seizures: Yes Review of Systems Eye: Denies: blurred vision, eye pain ENT: Denies: ear pain, nose congestion, throat swelling Respiratory: Denies: cough, shortness of breath Cardiovascular: Denies: chest pain, palpitations Gastrointestinal: Reports: abdominal pain, Denies: diarrhea, nausea, vomiting Musculoskeletal: Denies: back pain, joint pain Skin: Denies: rash Neurological: Denies: headache, numbness Endocrine: Denies: increased thirst, increased urine Hematologic/Lymphatic: Denies: easy bruising All Other Systems: negative except mentioned in HPI Physical Exam Vital Signs Date Time Temp Pulse Resp B/P Pulse Ox O2 Delivery O2 Flow Rate FiO2 01/19/17 22:03 98.6 90 16 122/55 98 Room Air vitals stable. Sp02 EP Interpretation: reviewed, normal General Appearance: well appearing, no apparent distress, alert Head: normocephalic, atraumatic Eyes: bilateral eye EOMI, bilateral eye PERRL ENT: hearing grossly normal, normal pharynx Neck: full range of motion, supple, no meningismus Respiratory: chest non-tender, lungs clear, normal breath sounds Cardiovascular #1: regular rate, rhythm, no murmur Gastrointestinal: normal bowel sounds, no mass, no organomegaly, no bruit, non- distended, tenderness - diffuse Musculoskeletal: back normal, gait/station normal, normal range of motion Psychiatric: mood/affect normal Skin: warm/dry Medical Decision Making Diagnostic Impression: Primary Impression: Abdominal pain Qualified Codes: R10.84 - Generalized abdominal pain Additional Impression: Acute alcoholic intoxication Qualified Codes: F10.120 - Alcohol abuse with intoxication, uncomplicated ER Course Patient presents with alcohol abuse and abdominal pain. Labs recently was remarkable. I see no evidence of acute abdomen. We'll discharge home. He refuse any social service. Last Vital Signs Date Time Temp Pulse Resp B/P Pulse Ox O2 Delivery O2 Flow Rate FiO2 01/19/17 22:03 98.6 90 16 122/55 98 Room Air Status: improved Disposition: HOME, SELF-CARE Condition: Stable Scripts Omeprazole Magnesium (PRILOSEC OTC) 20 Mg Tablet. 20 MG ORAL DAILY, #30 TAB Prov: SHERLEY HOLLINGSWORTH M.D. 01/19/17 Referrals: NOT CHOSEN IPA/,REFERRING (PCP) Patient Instructions: Abdominal Pain, Adult Additional Instructions: Stop drinking alcohol. Follow up with your doctor in 7 days. Return if worse. SHERLEY HOLLINGSWORTH M.D. Jan 19, 2017 23:55
[2017-01-19 23:59] VITALS: BP 122/55
== END 2017-01-20 00:03 | disposition home or self-care (01) ==
LOC: EDBD 22:01 → EMR 22:18
DX: R10.9 Unspecified abdominal pain (principal); F10.129 Alcohol abuse with intoxication, unspecified
CPT/HCPCS: 99284

== ENCOUNTER 2017-04-30 22:52 | Emergency (ER) | payer MEDICAID ==
[~2017-04-30] VITALS: Ht 170.2 cm; Wt 63.5 kg
[~2017-04-30 22:52] MED LIST changes: +PRILOSEC OTC20 MG ORAL
[2017-04-30] MEDS ORDERED: Mylanta II UD 30ml ORAL ONE (23:00)
[2017-04-30] MEDS ORDERED: Lidocaine 2% Visc 15ml soln ORAL ONE (23:00)
[2017-04-30 23:12] VITALS: BP 128/80
[2017-05-01 02:00] VITALS: BP 118/78
--- NOTE | 2017-05-01 02:05 | Emergency Room Report ---
History of Present Illness General Chief Complaint: Abdominal Pain Source: Patient Present Illness HPI 37YOM BIBEMS for abd pain. History of chronic ETOH abuse. Here to the ED frequently for similar. Endorses drinking today. Denies vomiting, diarrhea, fever/chills, chest pain, SOB Denies other drug use. Allergies: Coded Allergies: No Known Allergies (Unverified , 10/19/16) UNABLE TO ASSESS (Unverified , 01/14/17) Patient History Past Medical History: other - gastritis? Past Surgical History: none Pertinent Family History: none Social History: Reports: alcohol use Immunizations: UTD Reviewed Nursing Documentation: PMH: Agreed, PSxH: Agreed Nursing Documentation-PMH Past Medical History: No Stated History Hx Seizures: Yes Review of Systems All Other Systems: negative except mentioned in HPI Physical Exam Vital Signs Date Time Temp Pulse Resp B/P Pulse Ox O2 Delivery O2 Flow Rate FiO2 04/30/17 22:46 97.9 86 16 130/80 98 Room Air Sp02 EP Interpretation: reviewed, normal General Appearance: normal inspection, well appearing, no apparent distress, alert, GCS 15, non-toxic Head: normocephalic, atraumatic Eyes: bilateral eye EOMI, bilateral eye PERRL ENT: normal ENT inspection, hearing grossly normal, normal voice Neck: normal inspection, full range of motion, supple, no bony tend Respiratory: normal inspection, lungs clear, normal breath sounds, no respiratory distress, no retraction, no wheezing Cardiovascular #1: regular rate, rhythm, no edema Gastrointestinal: normal inspection, normal bowel sounds, non tender, soft, no guarding, no hernia Genitourinary: no CVA tenderness Musculoskeletal: normal inspection, back normal, normal range of motion, Celi' s Sign negative Neurologic: normal inspection, alert, oriented x3, responsive, welding machine tender III-XII nml as tested, motor strength/tone normal, speech normal Psychiatric: normal inspection, judgement/insight normal, mood/affect normal Skin: normal inspection, normal color, no rash Medical Decision Making Diagnostic Impression: Primary Impression: Abdominal pain Qualified Codes: R10.9 - Unspecified abdominal pain Additional Impression: Acute alcoholic intoxication Qualified Codes: F10.920 - Alcohol use, unspecified with intoxication, uncomplicated ER Course Abd pain, ETOH intoxication - VSS. Afebrile. - Atraumatic - Pain likely from gastritis - Was given GI cocktail then slept all night in stretcher ? malingering for retirement as well Ambulating back and forth to bathroom with steady gait Tolerating PO DC home Last Vital Signs Date Time Temp Pulse Resp B/P Pulse Ox O2 Delivery O2 Flow Rate FiO2 05/01/17 00:36 97.9 04/30/17 23:12 78 16 128/80 98 Room Air Status: improved Disposition: HOME, SELF-CARE Referrals: NOT CHOSEN IPA/,REFERRING (PCP) JESSICA CRUZ M.D. May 01, 2017 02:05
[2017-05-01 03:19] VITALS: BP 122/74
[2017-05-01 04:59] VITALS: BP_SYST 118; BP_SYST 122; BP_DIAS 70; BP_DIAS 74
== END 2017-05-01 05:01 | disposition home or self-care (01) ==
LOC: EDBD 22:52 → EMR 23:04
DX: R10.9 Unspecified abdominal pain (principal); F10.129 Alcohol abuse with intoxication, unspecified
CPT/HCPCS: 99284

== ENCOUNTER 2017-07-14 14:12 | Emergency (ER) | payer MEDICAID ==
[~2017-07-14] VITALS: Ht 180.3 cm; Wt 68.0 kg
[2017-07-14 14:56] LABS: MEAN CORPUSCULAR HEMOGLOBIN 21.5 PG (27.0-31.0); MEAN CORPUSCULAR HGB CONC 29.6 G/DL (32.0-36.0); MEAN CORPUSCULAR VOLUME 73 FL (80-99); MEAN PLATELET VOLUME 5.5 FL (6.5-10.1); PLATELET COUNT 131 K/UL (150-450); RED BLOOD COUNT 4.18 M/UL (4.70-6.10); RED CELL DISTRIBUTION WIDTH 17.9 % (11.6-14.8); WHITE BLOOD COUNT 2.6 K/UL (4.8-10.8)
[2017-07-14 15:10] LABS: ALANINE AMINOTRANSFERASE 79 U/L (12-78); ALBUMIN/GLOBULIN RATIO 1.2 (1.0-2.7); ANION GAP 11 (5-15); ASPARTATE AMINO TRANSFERASE 157 U/L (15-37); CALCIUM 8.2 MG/DL (8.5-10.1); CARBON DIOXIDE 28 MMOL/L (21-32); CHLORIDE 106 MMOL/L (98-107); CREATININE 0.6 MG/DL (0.55-1.30); GLOMERULAR FILTRATION RATE > 60 mL/min (>60); POTASSIUM 3.6 MMOL/L (3.5-5.1); SODIUM 145 MMOL/L (136-145); TOTAL PROTEIN 7.2 G/DL (6.4-8.2)
[2017-07-14 15:13] LABS: ALCOHOL 466 mg/dL
[2017-07-14 15:43] LABS: BAND NEUTROPHILS % (MANUAL) 0 % (0-8); BASOPHILS % (MANUAL) 1 % (0-2); EOSINOPHILS % (MANUAL) 0 % (0-3); HYPOCHROMASIA 1+; LYMPHOCYTES % (MANUAL) 36 % (20-45); NEUTROPHILS % (MANUAL) 46 % (45-75); OVALOCYTES 1+; PLATELET ESTIMATE DECREASED; PLATELET MORPHOLOGY NORMAL; TOTAL CELLS COUNTED 100
[2017-07-14 15:44] LABS: ANISOCYTOSIS 1+
--- NOTE | 2017-07-14 15:59 | Emergency Room Report ---
History of Present Illness General Chief Complaint: Altered Mental Status Source: Patient, EMS Present Illness HPI Patient presents for complaints of altered mental status paramedics report the patient was found down on the ground No reports of any blood Patient upon arrival was verbal Denies any headache or chest pain Patient is somewhat uncooperative with the examination and evaluation Refuses to answer many questions Patient does admit to drinking earlier today However the history of present illness remains limited Allergies: Coded Allergies: No Known Allergies (Unverified , 10/19/16) Patient History Past Medical History: see triage record Pertinent Family History: none Reviewed Nursing Documentation: PMH: Agreed, PSxH: Agreed Nursing Documentation-PMH Hx Seizures: Yes - Alcohol abuse Review of Systems All Other Systems: negative except mentioned in HPI Physical Exam Vital Signs Date Time Temp Pulse Resp B/P (MAP) Pulse Ox O2 Delivery O2 Flow Rate FiO2 07/14/17 14:13 98.1 109 18 120/64 97 Room Air Sp02 EP Interpretation: reviewed, normal General Appearance: no apparent distress Head: normocephalic, atraumatic Eyes: bilateral eye PERRL, bilateral eye EOMI ENT: hearing grossly normal, normal pharynx Neck: supple Respiratory: lungs clear Cardiovascular #1: regular rate, rhythm, no edema Gastrointestinal: non tender, soft Musculoskeletal: normal inspection Neurologic: alert - History the patient was awake, speaking appear to be inebriated, soon after being placed into a bed patient has gone to sleep and is refusing to answer any question, Skin: other - somewhat disheveled Lymphatic: no adenopathy Medical Decision Making Diagnostic Impression: Primary Impression: Alcohol abuse Additional Impression: Pancytopenia ER Course Multiple differentials considered Upon initial arrival the patient was awake and responsive No obvious focal neurological symptoms were found therefore CT imaging was not obtained patient's alcohol level is elevated which is likely the secondary reason for the patient's mentation After obtaining blood work patient show signs of pancytopenia he has had this in the past and appears to be chronic presentation Apparently after further observation the patient had felt better and requested to leave the hospital Patient was not reevaluated and essentially eloped prior to a final eval by myself Labs Test 07/14/17 14:35 White Blood Count 2.6 K/UL (4.8-10.8) Red Blood Count 4.18 M/UL (4.70-6.10) Hemoglobin 9.0 G/DL (14.2-18.0) Hematocrit 30.5 % (42.0-52.0) Mean Corpuscular Volume 73 FL (80-99) Mean Corpuscular Hemoglobin 21.5 PG (27.0-31.0) Mean Corpuscular Hemoglobin Concent 29.6 G/DL (32.0-36.0) Red Cell Distribution Width 17.9 % (11.6-14.8) Platelet Count 131 K/UL (150-450) Mean Platelet Volume 5.5 FL (6.5-10.1) Neutrophils (%) (Auto) % (45.0-75.0) Lymphocytes (%) (Auto) % (20.0-45.0) Monocytes (%) (Auto) % (1.0-10.0) Eosinophils (%) (Auto) % (0.0-3.0) Basophils (%) (Auto) % (0.0-2.0) Differential Total Cells Counted 100 Neutrophils % (Manual) 46 % (45-75) Lymphocytes % (Manual) 36 % (20-45) Monocytes % (Manual) 17 % (1-10) Eosinophils % (Manual) 0 % (0-3) Basophils % (Manual) 1 % (0-2) Band Neutrophils 0 % (0-8) Platelet Estimate Decreased Platelet Morphology Normal Hypochromasia 1+ Anisocytosis 1+ Ovalocytes 1+ Sodium Level 145 MMOL/L (136-145) Potassium Level 3.6 MMOL/L (3.5-5.1) Chloride Level 106 MMOL/L (98-107) Carbon Dioxide Level 28 MMOL/L (21-32) Anion Gap 11 (5-15) Blood Urea Nitrogen 11 mg/dL (7-18) Creatinine 0.6 MG/DL (0.55-1.30) Estimat Glomerular Filtration Rate > 60 mL/min (>60) Glucose Level 117 MG/DL (74-106) Calcium Level 8.2 MG/DL (8.5-10.1) Total Bilirubin 0.4 MG/DL (0.2-1.0) Aspartate Amino Transf (AST/SGOT) 157 U/L (15-37) Alanine Aminotransferase (ALT/SGPT) 79 U/L (12-78) Alkaline Phosphatase 87 U/L (46-116) Total Protein 7.2 G/DL (6.4-8.2) Albumin 3.9 G/DL (3.4-5.0) Globulin 3.3 g/dL Albumin/Globulin Ratio 1.2 (1.0-2.7) Salicylates Level 3 ug/mL (2.8-20) Acetaminophen Level 0.0 MCG/ML (10-30) Serum Alcohol 466 mg/dL Last Vital Signs Date Time Temp Pulse Resp B/P (MAP) Pulse Ox O2 Delivery O2 Flow Rate FiO2 07/14/17 14:13 98.1 109 18 120/64 97 Room Air Status: improved Disposition: ELOPED Condition: Unknown Referrals: NOT CHOSEN IPA/,REFERRING (PCP) ANGELA STEPHENSON D.O. Jul 14, 2017 15:59
[2017-07-14 16:25] VITALS: BP 120/64
[2017-08-02] MEDS ORDERED: QUETIAPINE FUMA25 MG ORAL (15:11)
== END 2017-07-14 19:46 | disposition home or self-care (01) ==
LOC: EDBD 14:12 → EMR 14:44
DX: F10.10 Alcohol abuse, uncomplicated (principal); D61.818 Other pancytopenia; R41.82 Altered mental status, unspecified; Z86.69 Personal history of other diseases of the nervous system and sense organs
CPT/HCPCS: 36415; 80053; 80329; 85007; 85025; 99284

== ENCOUNTER 2017-08-02 15:13 | Emergency (ER) | payer MEDICAID ==
[~2017-08-02] VITALS: Ht 175.3 cm; Wt 65.8 kg
[2017-08-02 15:05] VITALS: BP 138/80
[2017-08-02] MEDS ORDERED: Lidocaine 2% Visc 15ml soln ORAL ONE (15:15)
[2017-08-02] MEDS ORDERED: Dicyclomine HCl 10mg/5ml oral soln ORAL ONE (15:15)
[2017-08-02] MEDS ORDERED: Mylanta II UD 30ml ORAL ONE (15:15)
[2017-08-02 16:14] VITALS: BP 131/75
--- NOTE | 2017-08-02 19:21 | Emergency Room Report ---
History of Present Illness General Chief Complaint: Vomiting Source: Patient Present Illness HPI The patient is a 37-year-old male brought in by EMS for possible alcohol intoxication. The patient admits to drinking alcohol today. He has been seen in this emergency department many times for the same complaint. He is describing abdominal pain is a 5/10 dull ache to the mid upper abdomen and does not radiate. He states that this is from drinking. He denies any other complaints Allergies: Coded Allergies: No Known Allergies (Unverified , 10/19/16) Patient History Past Medical History: see triage record Pertinent Family History: none Social History: Reports: alcohol use Reviewed Nursing Documentation: PMH: Agreed, PSxH: Agreed Nursing Documentation-PMH History Of Psychiatric Problem: Yes - ETOH abuse; Bipolar; Schizophrenia Hx Seizures: Yes - Alcohol abuse Review of Systems All Other Systems: limited Physical Exam Vital Signs Date Time Temp Pulse Resp B/P (MAP) Pulse Ox O2 Delivery O2 Flow Rate FiO2 08/02/17 15:05 84 16 138/80 99 Room Air 08/02/17 15:05 98.1 Sp02 EP Interpretation: reviewed, normal General Appearance: no apparent distress, alert, GCS 15, non-toxic Head: normocephalic, atraumatic Eyes: bilateral eye normal inspection, bilateral eye PERRL ENT: hearing grossly normal, normal pharynx, no angioedema, normal voice Neck: full range of motion, supple/symm/no masses Respiratory: chest non-tender, lungs clear, normal breath sounds, speaking full sentences Cardiovascular #1: regular rate, rhythm, no edema Gastrointestinal: normal bowel sounds, soft, non-distended, no guarding, tenderness - epigastric Genitourinary: normal inspection, no CVA tenderness Musculoskeletal: back normal, gait/station normal, normal range of motion, non- tender Neurologic: alert, oriented x3, responsive, motor strength/tone normal, sensory intact, speech normal Psychiatric: judgement/insight normal, memory normal, mood/affect normal, no suicidal/homicidal ideation Skin: normal color, no rash, warm/dry, well hydrated Medical Decision Making PA Attestation Dr. Ayoub is my supervising physician. Patient management was discussed with my supervising physician Diagnostic Impression: Primary Impression: Acute alcoholic intoxication Qualified Codes: F10.929 - Alcohol use, unspecified with intoxication, unspecified ER Course The patient is a 37-year-old male brought in by EMS for possible alcohol intoxication. DDx considered but not limited to: acute alcohol intoxication, gastritis, drug overdose, hypoglycemia, psychosis Physical exam: Vitals are within normal limits. No apparent distress. Patient is lethargic. Head is normocephalic atraumatic. Pupils are equally round and reactive to light The patient is arousable by touch or name. Lungs are clear to auscultation bilaterally. No abnormal tenderness. Abdomen is soft. Otherwise exam is unremarkable The patient is given time to rest in the emergency department. He is given GI cocktail and zofran and feels better. The patient be discharged home and given ER precautions. Patient was given advice on alcohol addiction Last Vital Signs Date Time Temp Pulse Resp B/P (MAP) Pulse Ox O2 Delivery O2 Flow Rate FiO2 08/02/17 16:14 98.1 81 17 131/75 100 Room Air Status: improved Disposition: HOME, SELF-CARE Condition: Improved Referrals: NOT CHOSEN IPA/MD,REFERRING (PCP) Patient Instructions: Alcohol Intoxication Additional Instructions: My findings were discussed with the patient. Patient was counseled to seek help for alcohol abuse. Patient is stable for discharge, is alert and oriented, and can ambulate without difficulty. Patient is asked to return to ED if he experiences chest pain, abdominal pain, dizziness, falls down, or for any reason. STEVE SLAUGHTER Aug 02, 2017 19:21
== END 2017-08-02 16:14 | disposition home or self-care (01) ==
LOC: EDBD 15:13 → EMR 15:40
DX: F10.129 Alcohol abuse with intoxication, unspecified (principal); F31.9 Bipolar disorder, unspecified; F20.9 Schizophrenia, unspecified
CPT/HCPCS: 99284

== ENCOUNTER 2017-08-10 15:26 | Emergency (ER) | payer MEDICAID ==
[~2017-08-10] VITALS: Ht 175.3 cm; Wt 68.0 kg
[2017-08-10 15:29] VITALS: BP 98/38
[2017-08-10 16:26] LABS: BASOPHILS % (AUTO) 1.9 % (0.0-2.0); EOSINOPHILS % (AUTO) 2.4 % (0.0-3.0); HEMATOCRIT 29.4 % (42.0-52.0); HEMOGLOBIN 8.4 G/DL (14.2-18.0); LYMPHOCYTES % (AUTO) 47.4 % (20.0-45.0); MEAN CORPUSCULAR VOLUME 75 FL (80-99); MONOCYTES % (AUTO) 16.6 % (1.0-10.0); NEUTROPHILS % (AUTO) 31.6 % (45.0-75.0); PLATELET COUNT 201 K/UL (150-450); RED BLOOD COUNT 3.94 M/UL (4.70-6.10); RED CELL DISTRIBUTION WIDTH 18.8 % (11.6-14.8); WHITE BLOOD COUNT 4.3 K/UL (4.8-10.8)
[2017-08-10 16:49] LABS: ALANINE AMINOTRANSFERASE 110 U/L (12-78); ALBUMIN 3.7 G/DL (3.4-5.0); ALBUMIN/GLOBULIN RATIO 1.2 (1.0-2.7); ALKALINE PHOSPHATASE 79 U/L (46-116); ANION GAP 13 mmol/L (5-15); ASPARTATE AMINO TRANSFERASE 162 U/L (15-37); BILIRUBIN,TOTAL 0.4 MG/DL (0.2-1.0); BLOOD UREA NITROGEN 6 mg/dL (7-18); CALCIUM 8.9 MG/DL (8.5-10.1); CARBON DIOXIDE 24 MMOL/L (21-32); CHLORIDE 107 MMOL/L (98-107); CREATININE 0.7 MG/DL (0.55-1.30); POTASSIUM 3.2 MMOL/L (3.5-5.1); SODIUM 144 MMOL/L (136-145)
--- NOTE | 2017-08-10 16:49 | Emergency Room Report ---
History of Present Illness General Chief Complaint: Overdose Source: Patient, EMS Present Illness HPI 37-year-old male presents ED for evaluation. Patient was found in parking lot. Patient apparently witnessed taking several tablets when he saw EMS and 911. Patient states he was taking Ativan. Patient also admits to alcohol use. EMS Accu-Chek was low and was given D50. Upon arrival patient is intoxicated. No suicidal homicidal ideation. Patient is well-known to [facility] has been here multiple times in the past with similar presentation. No other aggravating or relieving factors. Denies any other associated symptom Allergies: Coded Allergies: No Known Allergies (Unverified , 10/19/16) Patient History Past Medical History: HTN, psych hx Pertinent Family History: none Social History: Reports: alcohol use, Denies: smoking, drug use Immunizations: UTD Reviewed Nursing Documentation: PMH: Agreed, PSxH: Agreed Nursing Documentation-PMH Hx Hypertension: Yes Hx Cancer: Yes - Unknown History Of Psychiatric Problem: Yes - Unknown Hx Seizures: Yes Review of Systems All Other Systems: negative except mentioned in HPI Physical Exam Vital Signs Date Time Temp Pulse Resp B/P (MAP) Pulse Ox O2 Delivery O2 Flow Rate FiO2 08/10/17 15:19 98.1 110 18 142/80 97 Room Air Sp02 EP Interpretation: reviewed, normal General Appearance: other - intoxicated Head: normocephalic, atraumatic Eyes: bilateral eye normal inspection, bilateral eye PERRL ENT: hearing grossly normal, normal pharynx, no angioedema, normal voice Neck: full range of motion, supple/symm/no masses Respiratory: chest non-tender, lungs clear, normal breath sounds, speaking full sentences Cardiovascular #1: regular rate, rhythm, no edema Cardiovascular #2: 2+ carotid (R), 2+ carotid (L), 2+ radial (R), 2+ radial (L) , 2+ dorsalis pedis (R), 2+ dorsalis pedis (L) Gastrointestinal: normal bowel sounds, non tender, soft, non-distended, no guarding, no rebound Rectal: deferred Genitourinary: normal inspection, no CVA tenderness Musculoskeletal: back normal, gait/station normal, normal range of motion, non- tender Neurologic: other - intoxicated Psychiatric: no suicidal/homicidal ideation, other - intoxicated Reflexes: 3+ bicep (R), 3+ bicep (L), 3+ tricep (R), 3+ tricep (L), 3+ knee (R) , 3+ knee (L) Skin: normal color, no rash, warm/dry, well hydrated Lymphatic: no adenopathy Medical Decision Making Diagnostic Impression: Primary Impression: Acute alcoholic intoxication Qualified Codes: F10.929 - Alcohol use, unspecified with intoxication, unspecified Additional Impression: Drug overdose Qualified Codes: T50.901A - Poisoning by unspecified drugs, medicaments and biological substances, accidental (unintentional), initial encounter ER Course Hospital Course 37-year-old M presents to ED with altered mental status. took pills and alcohol prior to arrival Differential diagnoses include: Psychosis, EtOH, drug abuse Clinical course patient placed on stretcher. On air sampling and monitoring. After initial history and physical ordered labs, IV fluids Labs reviewed-electrolytes okay, no leukocytosis, hemoglobin/hematocrit stable, tox panel + BZs, ETOH > 400 patient allowed to sleep. Patient is now awake alert oriented x3, ambulating i. I feel this is a highly complex case requiring extensive working including EKG/Rhythm strip, Xray/CT/US, Blood/urine lab work, repeat exams while in ED, and administration of strong opiates/narcotics for pain control, admission to hospital or close patient follow up. Diagnosis - alcholic intoxication, drug overdose Stable and discharged to home. Followup with PMD. Return to ED if symptoms recur or worsen Labs Test 08/10/17 16:00 08/10/17 16:15 White Blood Count 4.3 K/UL (4.8-10.8) Red Blood Count 3.94 M/UL (4.70-6.10) Hemoglobin 8.4 G/DL (14.2-18.0) Hematocrit 29.4 % (42.0-52.0) Mean Corpuscular Volume 75 FL (80-99) Mean Corpuscular Hemoglobin 21.4 PG (27.0-31.0) Mean Corpuscular Hemoglobin Concent 28.7 G/DL (32.0-36.0) Red Cell Distribution Width 18.8 % (11.6-14.8) Platelet Count 201 K/UL (150-450) Mean Platelet Volume 6.8 FL (6.5-10.1) Neutrophils (%) (Auto) 31.6 % (45.0-75.0) Lymphocytes (%) (Auto) 47.4 % (20.0-45.0) Monocytes (%) (Auto) 16.6 % (1.0-10.0) Eosinophils (%) (Auto) 2.4 % (0.0-3.0) Basophils (%) (Auto) 1.9 % (0.0-2.0) Sodium Level 144 MMOL/L (136-145) Potassium Level 3.2 MMOL/L (3.5-5.1) Chloride Level 107 MMOL/L (98-107) Carbon Dioxide Level 24 MMOL/L (21-32) Anion Gap 13 mmol/L (5-15) Blood Urea Nitrogen 6 mg/dL (7-18) Creatinine 0.7 MG/DL (0.55-1.30) Estimat Glomerular Filtration Rate > 60 mL/min (>60) Glucose Level 127 MG/DL (74-106) Calcium Level 8.9 MG/DL (8.5-10.1) Total Bilirubin 0.4 MG/DL (0.2-1.0) Aspartate Amino Transf (AST/SGOT) 162 U/L (15-37) Alanine Aminotransferase (ALT/SGPT) 110 U/L (12-78) Alkaline Phosphatase 79 U/L (46-116) Total Protein 6.8 G/DL (6.4-8.2) Albumin 3.7 G/DL (3.4-5.0) Globulin 3.1 g/dL Albumin/Globulin Ratio 1.2 (1.0-2.7) Salicylates Level 2.7 ug/mL (2.8-20) Acetaminophen Level < 10 MCG/ML (10-30) Serum Alcohol 481 mg/dL Urine Opiates Screen Negative (NEGATIVE) Urine Barbiturates Screen Negative (NEGATIVE) Phencyclidine (PCP) Screen Negative (NEGATIVE) Urine Amphetamines Screen Negative (NEGATIVE) Urine Benzodiazepines Screen Positive (NEGATIVE) Urine Cocaine Screen Negative (NEGATIVE) Urine Marijuana (THC) Screen Negative (NEGATIVE) EKG Diagnostic Results Rate: normal Rhythm: NSR ST Segments: no acute changes ASA given to the pt in ED: No Rhythm Strip Diag. Results EP Interpretation: yes Rhythm: NSR, no PVC's, no ectopy Last Vital Signs Date Time Temp Pulse Resp B/P (MAP) Pulse Ox O2 Delivery O2 Flow Rate FiO2 08/10/17 15:19 98.1 110 18 142/80 97 Room Air Status: improved Disposition: HOME, SELF-CARE Condition: Stable Referrals: NOT CHOSEN IPA/,REFERRING (PCP) ANTELMO AKINS M.D. Aug 10, 2017 16:49
[2017-08-10 17:00] VITALS: BP 102/38
[2017-08-10 17:30] VITALS: BP 108/43
[2017-08-10 19:22] VITALS: BP 112/58
[2017-08-10 20:51] VITALS: BP 105/64
[2017-08-10 22:51] VITALS: BP 109/62
[2017-08-11 00:51] VITALS: BP 117/69
[2017-08-11 02:51] VITALS: BP 120/74
[2017-08-11 04:51] VITALS: BP 125/73
[2017-08-11 05:50] VITALS: BP 125/73
--- NOTE | 2017-08-11 16:38 | Cardiology Report ---
APPROVED REPORT EKG Measurement Heart [id number] [place] 138P70 [id number] Normal sinus rhythm Left ventricular hypertrophy with repolarization abnormality Prolonged QT Abnormal ECG
--- NOTE | 2017-08-11 16:38 | Cardiology Report ---
APPROVED REPORT EKG Measurement Heart [id number] PA 138P70 [id number] Normal sinus rhythm Left ventricular hypertrophy with repolarization abnormality Prolonged QT Abnormal ECG
--- NOTE | 2017-08-11 16:38 | Cardiology Report ---
APPROVED REPORT EKG Measurement Heart [id number] MI [id number] [id number] Normal sinus rhythm Left ventricular hypertrophy with repolarization abnormality Prolonged QT Abnormal ECG
--- NOTE | 2017-08-12 01:41 | Consultation ---
History of Present Illness General Chief Complaint: Overdose Present Illness HPI 37-year-old male presents ED for evaluation. Patient was found in parking lot. Patient apparently witnessed taking several tablets when he saw EMS and 911. Patient states he was taking Ativan. Patient also admits to alcohol use. the pt was not able to provide hx. the pt has hx of this behaviour and has pw rajinder contreras/ the pt has long hc of alcohol use Allergies: Coded Allergies: No Known Allergies (Unverified , 10/19/16) Medication History Scheduled Amoxicillin* (Amoxil*), 250 MG ORAL EVERY 8 HOURS, (Reported) Aripiprazole* (Abilify*), 2 MG ORAL DAILY, (Reported) Cholecalciferol (Vitamin D3)* (Vitamin D*), 1,000 UNIT ORAL DAILY, (Reported) Fluoxetine Hcl* (Prozac*), MG ORAL DAILY, (Reported) Metoclopramide Hcl* (Reglan*), 10 MG ORAL THREE TIMES A DAY, (Reported) Pantoprazole* (Protonix*), 40 MG ORAL DAILY, (Reported) Phenytoin (Dilantin), 30 MG ORAL EVERY 8 HOURS, (Reported) Phenytoin Sodium Extended* (Dilantin*), 100 MG ORAL THREE TIMES A DAY, (Reported ) Quetiapine Fumarate* (Seroquel*), 25 MG ORAL DAILY, (Reported) Quetiapine Fumarate* (Seroquel*), Unknown Dose ORAL DAILY, (Reported) Sucralfate* (Carafate*), 1 GM ORAL FOUR TIMES A DAY, (Reported) Miscellaneous Medications Unable to Obtain Medications (Unable To Obtain Meds), (Reported) Patient History History Provided By: Patient, Medical Record Healthcare decision maker Resuscitation status Advanced Directive on File Past Medical/Surgical History Past Medical/Surgical History: (1) Hearing voices (2) Encounter for medical screening examination (3) Abdominal pain (4) Pancytopenia (5) Alcohol abuse (6) Acute alcoholic intoxication Review of Systems Psychiatric: Reports: prior hx, anxiety, depressed feelings Physical Exam General Appearance: no apparent distress, alert, cachetic Neurologic: alert, oriented x 3, responsive, normal mood/affect Last 24 Hour Vital Signs Date Time Temp Pulse Resp B/P (MAP) Pulse Ox O2 Delivery O2 Flow Rate FiO2 08/11/17 05:50 97.9 78 16 125/73 100 Room Air 08/11/17 04:51 97.9 78 16 125/73 100 Room Air 08/11/17 02:51 97.5 81 16 120/74 100 Room Air Height (Feet): 5 Height (Inches): 9.00 Weight (Pounds): 150 Assessment/Plan Status: stable Assessment/Plan mdd alcohol dependence not suicidal not holdable dc when more alert Juan A Mcdonald M.D. Aug 12, 2017 01:41
== END 2017-08-11 05:50 | disposition home or self-care (01) ==
LOC: EDBD 15:26 → EMR 15:50
DX: T42.4X1A Poisoning by benzodiazepines, accidental (unintentional), initial encounter (principal); F10.929 Alcohol use, unspecified with intoxication, unspecified; I10 Essential (primary) hypertension; Y92.481 Parking lot as the place of occurrence of the external cause
CPT/HCPCS: 36415; 80053; 80307; 80329; 82962; 85025; 93005; 96361; 96374; 99284; J2405; 96360

== ENCOUNTER 2017-08-14 22:26 | Emergency (ER) | payer MEDICAID ==
[~2017-08-14] VITALS: Ht 172.7 cm; Wt 72.6 kg
--- NOTE | 2017-08-14 22:32 | Emergency Room Report ---
History of Present Illness General Chief Complaint: Alcohol Intoxication Source: Patient, EMS Present Illness HPI This is a 37-year-old male who is an alcoholic. He's been here numerous time. He called 911 for alcohol intoxication and abdominal pain. His abdominal pain going on for years. Lab work review alcoholic hepatitis in the past. He was is here 3-4 days ago. Denies any nausea vomiting. Denies any fever or chills. Pain is 8/10. No suicidal thought homicidal thought. Allergies: Coded Allergies: No Known Allergies (Unverified , 10/19/16) Patient History Past Medical History: see triage record, old chart reviewed Past Surgical History: other Pertinent Family History: none Social History: Reports: smoking, alcohol use Immunizations: other Reviewed Nursing Documentation: PMH: Agreed, PSxH: Agreed Nursing Documentation-PMH Hx Hypertension: Yes Hx Cancer: Yes - Unknown Hx Seizures: Yes Review of Systems Eye: Denies: eye pain, blurred vision ENT: Denies: ear pain, nose congestion, throat swelling Respiratory: Denies: cough, shortness of breath Cardiovascular: Denies: chest pain, palpitations Gastrointestinal: Reports: abdominal pain, Denies: diarrhea, nausea, vomiting Musculoskeletal: Denies: back pain, joint pain Skin: Denies: rash Neurological: Denies: headache, numbness Endocrine: Denies: increased thirst, increased urine Hematologic/Lymphatic: Denies: easy bruising All Other Systems: negative except mentioned in HPI Physical Exam Vital Signs Date Time Temp Pulse Resp B/P (MAP) Pulse Ox O2 Delivery O2 Flow Rate FiO2 08/14/17 22:27 97.2 90 16 135/66 Room Air vitals normal Sp02 EP Interpretation: reviewed, normal General Appearance: well appearing, no apparent distress, alert, other - Intoxicated Head: normocephalic, atraumatic Eyes: bilateral eye PERRL, bilateral eye EOMI ENT: hearing grossly normal, normal pharynx Neck: full range of motion, supple, no meningismus Respiratory: chest non-tender, lungs clear, normal breath sounds Cardiovascular #1: regular rate, rhythm, no murmur Gastrointestinal: normal bowel sounds, no mass, no organomegaly, no bruit, non- distended, tenderness - Mild epigastric Musculoskeletal: back normal, normal range of motion Psychiatric: mood/affect normal Skin: warm/dry Medical Decision Making Diagnostic Impression: Primary Impression: Acute alcoholic intoxication Qualified Codes: F10.929 - Alcohol use, unspecified with intoxication, unspecified Additional Impression: Alcoholic hepatitis without ascites ER Course This patient present with alcohol intoxication and abdominal pain. Workup in the past unremarkable. We'll watch him to no clinical sobriety. At that point we'll discharge home. Last Vital Signs Date Time Temp Pulse Resp B/P (MAP) Pulse Ox O2 Delivery O2 Flow Rate FiO2 08/14/17 22:27 97.2 90 16 135/66 Room Air Status: improved Disposition: HOME, SELF-CARE Condition: Stable Patient Instructions: Alcohol Intoxication, [id number] Additional Instructions: Followup with your Dr. in 7 days. Stop drinking. Followup rehabilitation. Return if worse. SHERLEY HOLLINGSWORTH M.D. Aug 14, 2017 22:32
[2017-08-14 23:00] VITALS: BP 135/66
[2017-08-15 05:51] VITALS: BP 124/56
[2017-08-15 05:52] VITALS: BP 124/56
[2017-08-15] MEDS ORDERED: MULTIVITAMINS1 EAC8 ORAL (16:48)
[2017-08-15] MEDS ORDERED: TYLENOL325 MG ORAL (16:48)
[2017-08-15] MEDS ORDERED: PEPCID20 MG ORAL (16:48)
== END 2017-08-15 05:52 | disposition home or self-care (01) ==
LOC: EDBD 22:26 → EDUNIT# 22:26 → EMR 22:39
DX: F10.129 Alcohol abuse with intoxication, unspecified (principal); K70.10 Alcoholic hepatitis without ascites; I10 Essential (primary) hypertension; F17.200 Nicotine dependence, unspecified, uncomplicated
CPT/HCPCS: 99284

== ENCOUNTER 2017-08-15 13:36 | Emergency (ER) | payer MEDICAID ==
[~2017-08-15] VITALS: Ht 172.7 cm; Wt 81.6 kg
[2017-08-15 13:36] VITALS: BP 141/71
--- NOTE | 2017-08-15 13:44 | Emergency Room Report ---
History of Present Illness General Chief Complaint: Abdominal Pain Source: Patient, EMS Present Illness HPI The patient is brought in by EMS for abdominal pain. He was seen at [facility] 2 days ago. He states that the pain is caused from his cirrhosis. He's been drinking alcohol today. Denies vomiting blood or melena. He is screaming for pain medicine and food. He states the pain is 2-5/10, epigastric and RUQ not radiating and constant. He denies fever, cough, dysuria, joint pain, chest pain, SI or HI. He has had anemia in the past. Allergies: Coded Allergies: No Known Allergies (Unverified , 10/19/16) Patient History Past Medical History: see triage record Social History: Reports: alcohol use Social History Narrative on streets Reviewed Nursing Documentation: PMH: Agreed, PSxH: Agreed Nursing Documentation-PMH Past Medical History: No History, Except For Hx Hypertension: Yes Hx Cancer: Yes - Unknown Hx Gastrointestinal Problems: Yes - Pancreatitis, alcohol abuse History Of Psychiatric Problem: Yes - Schizo Hx Seizures: Yes Review of Systems All Other Systems: negative except mentioned in HPI Physical Exam Vital Signs Date Time Temp Pulse Resp B/P (MAP) Pulse Ox O2 Delivery O2 Flow Rate FiO2 08/15/17 13:29 98.2 100 18 141/71 99 Room Air Sp02 EP Interpretation: reviewed, normal General Appearance: no apparent distress, GCS 15, non-toxic, other - dishevelled Head: normocephalic, atraumatic Eyes: bilateral eye PERRL, bilateral eye Scleral Injection ENT: moist mucus membranes Neck: supple Respiratory: lungs clear, normal breath sounds Cardiovascular #1: regular rate, rhythm Cardiovascular #2: 2+ radial (R) Gastrointestinal: normal inspection, normal bowel sounds, no mass, non- distended, no guarding, no rebound, tenderness - diffuse, more in epigastric area Rectal: other - refuses rectal Musculoskeletal: back normal, gait/station normal, normal range of motion Neurologic: alert, oriented x3, motor strength/tone normal, DTRs symmetric, sensory intact, other - ataxic Psychiatric: no suicidal/homicidal ideation, other - demanding Skin: normal inspection, warm/dry Medical Decision Making Diagnostic Impression: Primary Impression: Abdominal pain Qualified Codes: R10.13 - Epigastric pain Additional Impressions: Anemia Qualified Codes: D64.9 - Anemia, unspecified Alcohol intoxication Qualified Codes: F10.929 - Alcohol use, unspecified with intoxication, unspecified ER Course Patient with abdominal pain with alcohol ingestion. DDx: gastritis, PUD, pancreatitis, GI bleed, hepatitis amongst others. Evaluation with labs. Treatment with IV hydration and tylenol. Labs significant for low H/H. Also + BA. Patient slept without problems. H/H has been low for 1 year. Patient refuses rectal. Patient ambulates without ataxia and wants to go. Patient stable for outpatient observation and treatment. Laboratory Tests Test 08/15/17 14:01 White Blood Count 3.2 K/UL (4.8-10.8) L Red Blood Count 4.18 M/UL (4.70-6.10) L Hemoglobin 8.7 G/DL (14.2-18.0) L Hematocrit 30.1 % (42.0-52.0) L Mean Corpuscular Volume 72 FL (80-99) L Mean Corpuscular Hemoglobin 20.8 PG (27.0-31.0) L Mean Corpuscular Hemoglobin Concent 28.8 G/DL (32.0-36.0) L Red Cell Distribution Width 18.5 % (11.6-14.8) H Platelet Count 296 K/UL (150-450) Mean Platelet Volume 5.5 FL (6.5-10.1) L Neutrophils (%) (Auto) % (45.0-75.0) Lymphocytes (%) (Auto) % (20.0-45.0) Monocytes (%) (Auto) % (1.0-10.0) Eosinophils (%) (Auto) % (0.0-3.0) Basophils (%) (Auto) % (0.0-2.0) Differential Total Cells Counted 100 Neutrophils % (Manual) 31 % (45-75) L Lymphocytes % (Manual) 47 % (20-45) H Monocytes % (Manual) 18 % (1-10) H Eosinophils % (Manual) 4 % (0-3) H Basophils % (Manual) 0 % (0-2) Band Neutrophils 0 % (0-8) Platelet Estimate Adequate Platelet Morphology Normal Hypochromasia 1+ Anisocytosis 1+ Microcytosis 1+ Ovalocytes 1+ Prothrombin Time 10.2 SEC (9.30-11.50) Prothrombin Time INR 1.0 (0.9-1.1) PTT 28 SEC (23-33) Sodium Level 143 MMOL/L (136-145) Potassium Level 3.8 MMOL/L (3.5-5.1) Chloride Level 103 MMOL/L (98-107) Carbon Dioxide Level 28 MMOL/L (21-32) Anion Gap 12 mmol/L (5-15) Blood Urea Nitrogen 6 mg/dL (7-18) L Creatinine 0.6 MG/DL (0.55-1.30) Estimate Glomerular Filtration Rate > 60 mL/min (>60) Glucose Level 108 MG/DL (74-106) H Calcium Level 8.8 MG/DL (8.5-10.1) Total Bilirubin 0.4 MG/DL (0.2-1.0) Aspartate Amino Transferase (AST) 112 U/L (15-37) H Alanine Aminotransferase (ALT) 82 U/L (12-78) H Alkaline Phosphatase 66 U/L (46-116) Total Protein 7.2 G/DL (6.4-8.2) Albumin 3.9 G/DL (3.4-5.0) Globulin 3.3 g/dL Albumin/Globulin Ratio 1.2 (1.0-2.7) Lipase 152 U/L (73-393) Serum Alcohol 453 mg/dL Last Vital Signs Date Time Temp Pulse Resp B/P (MAP) Pulse Ox O2 Delivery O2 Flow Rate FiO2 08/15/17 17:00 97 19 127/79 100 08/15/17 15:26 98.1 Room Air Status: improved Disposition: HOME, SELF-CARE Condition: Improved Scripts Multivitamin With Minerals (MULTIVITAMINS WITH MINERALS*) 1 Each Tablet 1 TAB ORAL DAILY, #30 TAB Prov: Dewey Rae M.D. 08/15/17 Acetaminophen (Tylenol) 325 Mg Tablet 650 MG ORAL Q6H Y for Prn Pain/Headache/Temp > 101, #20 TAB 0 Refills Prov: Dewey Rae M.D. 08/15/17 Famotidine (PEPCID) 20 Mg Tablet 20 MG ORAL DAILY, #30 TAB 0 Refills Prov: Dewey Rae M.D. 08/15/17 Dewey Rae M.D. Aug 15, 2017 13:44
[2017-08-15 14:41] LABS: HEMATOCRIT 30.1 % (42.0-52.0); HEMOGLOBIN 8.7 G/DL (14.2-18.0); MEAN CORPUSCULAR VOLUME 72 FL (80-99); PLATELET COUNT 296 K/UL (150-450); RED BLOOD COUNT 4.18 M/UL (4.70-6.10); RED CELL DISTRIBUTION WIDTH 18.5 % (11.6-14.8); WHITE BLOOD COUNT 3.2 K/UL (4.8-10.8)
[2017-08-15 14:44] LABS: ANION GAP 12 mmol/L (5-15); BLOOD UREA NITROGEN 6 mg/dL (7-18); CALCIUM 8.8 MG/DL (8.5-10.1); CARBON DIOXIDE 28 MMOL/L (21-32); CHLORIDE 103 MMOL/L (98-107); CREATININE 0.6 MG/DL (0.55-1.30); POTASSIUM 3.8 MMOL/L (3.5-5.1); SODIUM 143 MMOL/L (136-145)
[2017-08-15 14:49] LABS: ALANINE AMINOTRANSFERASE 82 U/L (12-78); ALBUMIN 3.9 G/DL (3.4-5.0); ALBUMIN/GLOBULIN RATIO 1.2 (1.0-2.7); ALKALINE PHOSPHATASE 66 U/L (46-116); ASPARTATE AMINO TRANSFERASE 112 U/L (15-37); BILIRUBIN,TOTAL 0.4 MG/DL (0.2-1.0)
[2017-08-15 15:26] VITALS: BP 127/67
[2017-08-15] MEDS ORDERED: TYLENOL325 MG ORAL (16:48)
[2017-08-15] MEDS ORDERED: PEPCID20 MG ORAL (16:48)
[2017-08-15] MEDS ORDERED: MULTIVITAMINS1 EAC8 ORAL (16:48)
[2017-08-15 17:00] VITALS: BP 127/79
== END 2017-08-15 17:30 | disposition home or self-care (01) ==
LOC: EDBD 13:36 → EMR 17:00
DX: R10.9 Unspecified abdominal pain (principal); D64.9 Anemia, unspecified; F10.129 Alcohol abuse with intoxication, unspecified
CPT/HCPCS: 36415; 80053; 80329; 83690; 85007; 85025; 85610; 85730; 96361; 96374; 99284

== ENCOUNTER 2017-09-07 13:46 | Emergency (ER) | payer MEDICAID ==
[~2017-09-07] VITALS: Ht 175.3 cm; Wt 63.5 kg
[~2017-09-07 13:46] MED LIST changes: +MULTIVITAMINS1 EAC8 ORAL
[2017-09-07 13:51] VITALS: BP 135/76
[2017-09-07 14:26] LABS: BASOPHILS % (AUTO) 1.8 % (0.0-2.0); EOSINOPHILS % (AUTO) 0.5 % (0.0-3.0); LYMPHOCYTES % (AUTO) 28.6 % (20.0-45.0); MEAN CORPUSCULAR HEMOGLOBIN 21.1 PG (27.0-31.0); MEAN CORPUSCULAR HGB CONC 30.2 G/DL (32.0-36.0); MEAN CORPUSCULAR VOLUME 70 FL (80-99); MEAN PLATELET VOLUME 6.2 FL (6.5-10.1); MONOCYTES % (AUTO) 13.9 % (1.0-10.0); NEUTROPHILS % (AUTO) 55.1 % (45.0-75.0); PLATELET COUNT 176 K/UL (150-450); RED BLOOD COUNT 4.28 M/UL (4.70-6.10); RED CELL DISTRIBUTION WIDTH 18.3 % (11.6-14.8); WHITE BLOOD COUNT 3.8 K/UL (4.8-10.8)
[2017-09-07 14:34] LABS: APPEARANCE,URINE CLEAR; KETONES,URINE NEGATIVE (NEGATIVE); LEUKOCYTE ESTERASE ,URINE NEGATIVE (NEGATIVE); NITRITE,URINE NEGATIVE (NEGATIVE); PH,URINE 6.5 (4.5-8.0); PROTEIN,URINE 3+ (NEGATIVE); UROBILINOGEN,URINE NORMAL MG/DL (0.0-1.0)
[2017-09-07 14:58] LABS: BACTERIA,URINE OCCASIONAL /HPF; RBC,URINE 0-2 /HPF (0 - 0); SQUAMOUS EPITHELIAL CELL,UR OCCASIONAL /LPF (NONE/OCC); WBC,URINE 0-2 /HPF (0 - 0)
[2017-09-07 15:03] LABS: ALANINE AMINOTRANSFERASE 74 U/L (12-78); ALBUMIN/GLOBULIN RATIO 1.1 (1.0-2.7); ALCOHOL 429 mg/dL; ANION GAP 11 mmol/L (5-15); ASPARTATE AMINO TRANSFERASE 129 U/L (15-37); CALCIUM 9.4 MG/DL (8.5-10.1); CARBON DIOXIDE 28 MMOL/L (21-32); CHLORIDE 99 MMOL/L (98-107); CREATININE 0.6 MG/DL (0.55-1.30); GLOMERULAR FILTRATION RATE > 60 mL/min (>60); LIPASE 122 U/L (73-393); POTASSIUM 3.4 MMOL/L (3.5-5.1); SODIUM 138 MMOL/L (136-145); TOTAL PROTEIN 7.9 G/DL (6.4-8.2)
[2017-09-07 16:14] VITALS: BP 120/67
[2017-09-07 16:38] VITALS: BP 120/67
--- NOTE | 2017-09-07 20:43 | Emergency Room Report ---
History of Present Illness General Chief Complaint: Abdominal Pain Source: EMS Present Illness HPI 37 YO Male presents to the ED c/O 07/14 in severity generalized abdominal pain described as sharp in nature with associated N/V s/p binge drinking ETOH. pt. reports hx of ETOH use and dependence. Pt. reports that he is attempting to self detox and needs Librium or Ativan. pt. denies hx of seizure from w/d. pt. denies concurrent drug use. pt. denies fevers, chills, blood in the vomit or stool or dark tarry stools. pt. reports recently being d/c from [facility] for ETOH, and scabies. pt. states he has not picked up with Librium and scabies prescriptions. Pt. reports also being rx'd Seroquel. denies SI/HI or hallucinations. HPI and ROS is limited secondary to poor pt. 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 Past Surgical History: none Pertinent Family History: none Social History: Reports: alcohol use Reviewed Nursing Documentation: PMH: Agreed, PSxH: Agreed Nursing Documentation-PMH Hx Hypertension: Yes Hx Cancer: Yes - Unknown History Of Psychiatric Problem: Yes - Schizophrenia; Alcohol abuse Hx Seizures: Yes Review of Systems All Other Systems: limited - limited secondary to poor pt. cooperation and obvious inebriation Physical Exam Vital Signs Date Time Temp Pulse Resp B/P (MAP) Pulse Ox O2 Delivery O2 Flow Rate FiO2 09/07/17 13:41 99.1 112 18 142/80 98 Room Air Sp02 EP Interpretation: reviewed, normal General Appearance: no apparent distress, alert, GCS 15, non-toxic, other - mildly disheveled Head: normocephalic, atraumatic Eyes: bilateral eye normal inspection, bilateral eye PERRL ENT: hearing grossly normal, normal pharynx, normal voice, uvula midline Neck: full range of motion, no bony tend Respiratory: lungs clear, normal breath sounds, speaking full sentences Cardiovascular #1: regular rate, rhythm, no edema, normal capillary refill, tachycardia Gastrointestinal: normal bowel sounds, non tender, soft, no guarding Rectal: deferred Musculoskeletal: back normal, gait/station normal, normal range of motion, non- tender Neurologic: alert, oriented x3, responsive, motor strength/tone normal, sensory intact Psychiatric: mood/affect normal, no suicidal/homicidal ideation Skin: normal color, warm/dry, well hydrated, rash - multiple excoriations of the bilateral UE's, anterior chest, neck and abdomen. no evidence of secondary cellulitis, no vesicles, no blisters. Medical Decision Making PA Attestation Dr. bowens is my supervising Physician whom patient management has been discussed with. Diagnostic Impression: Primary Impression: Acute alcoholic intoxication Qualified Codes: F10.929 - Alcohol use, unspecified with intoxication, unspecified Additional Impressions: Pancytopenia Alcohol abuse ER Course 37 YO Male presents to the ED c/O 07/14 in severity generalized abdominal pain described as sharp in nature with associated N/V s/p binge drinking ETOH. pt. reports hx of ETOH use and dependence. Pt. reports that he is attempting to self detox and needs Librium or Ativan. pt. denies hx of seizure from w/d. pt. denies concurrent drug use. pt. denies fevers, chills, blood in the vomit or stool or dark tarry stools. pt. reports recently being d/c from [facility] for ETOH, and scabies. pt. states he has not picked up with Librium and scabies prescriptions. Pt. reports also being rx'd Seroquel. denies SI/HI or hallucinations. HPI and ROS is limited secondary to poor pt. cooperation and obvious inebriation Pt. is has obvious ETOH onboard, pt. is NAD, pt. is alert, no obvious signs of trauma, able to ambulate to chair. Ddx considered but are not limited to ETOH, Trauma, Syncope, dementia, OD, UTI, intoxication, scabies, cellulitis just to name a few. Vital signs: are WNL, pt. is afebrile, tachycardic at 112 H&PE are most consistent with ETOH abuse. ORDERS: -CBC: pancytopenia which is consistent with historical lab values. -CMP: potassium of 3.4, and elevated AST 157. -Serum ETOH: 429 -UDS: negative ED INTERVENTIONS: -IV Fluids - Observance while he detoxifies. - Pt. was allowed to sleep/rest. -PT. continues to be awake and alert x 3 DISPOSITION: Pt. eloped prior to final repeat Eval and disposition. Labs Test 09/07/17 14:08 White Blood Count 3.8 K/UL (4.8-10.8) Red Blood Count 4.28 M/UL (4.70-6.10) Hemoglobin 9.0 G/DL (14.2-18.0) Hematocrit 29.9 % (42.0-52.0) Mean Corpuscular Volume 70 FL (80-99) Mean Corpuscular Hemoglobin 21.1 PG (27.0-31.0) Mean Corpuscular Hemoglobin Concent 30.2 G/DL (32.0-36.0) Red Cell Distribution Width 18.3 % (11.6-14.8) Platelet Count 176 K/UL (150-450) Mean Platelet Volume 6.2 FL (6.5-10.1) Neutrophils (%) (Auto) 55.1 % (45.0-75.0) Lymphocytes (%) (Auto) 28.6 % (20.0-45.0) Monocytes (%) (Auto) 13.9 % (1.0-10.0) Eosinophils (%) (Auto) 0.5 % (0.0-3.0) Basophils (%) (Auto) 1.8 % (0.0-2.0) Urine Color Pale yellow Urine Appearance Clear Urine pH 6.5 (4.5-8.0) Urine Specific [place] 1.010 (1.005-1.035) Urine Protein 3+ (NEGATIVE) Urine Glucose (UA) Negative (NEGATIVE) Urine Ketones Negative (NEGATIVE) Urine Occult Blood 1+ (NEGATIVE) Urine Nitrite Negative (NEGATIVE) Urine Bilirubin Negative (NEGATIVE) Urine Urobilinogen Normal MG/DL (0.0-1.0) Urine Leukocyte Esterase Negative (NEGATIVE) Urine RBC 0-2 /HPF (0 - 0) Urine WBC 0-2 /HPF (0 - 0) Urine Squamous Epithelial Cells Occasional /LPF Urine Bacteria Occasional /HPF (NONE) Sodium Level 138 MMOL/L (136-145) Potassium Level 3.4 MMOL/L (3.5-5.1) Chloride Level 99 MMOL/L (98-107) Carbon Dioxide Level 28 MMOL/L (21-32) Anion Gap 11 mmol/L (5-15) Blood Urea Nitrogen 6 mg/dL (7-18) Creatinine 0.6 MG/DL (0.55-1.30) Estimat Glomerular Filtration Rate > 60 mL/min (>60) Glucose Level 123 MG/DL (74-106) Calcium Level 9.4 MG/DL (8.5-10.1) Total Bilirubin 1.0 MG/DL (0.2-1.0) Aspartate Amino Transf (AST/SGOT) 129 U/L (15-37) Alanine Aminotransferase (ALT/SGPT) 74 U/L (12-78) Alkaline Phosphatase 83 U/L (46-116) Total Protein 7.9 G/DL (6.4-8.2) Albumin 4.2 G/DL (3.4-5.0) Globulin 3.7 g/dL Albumin/Globulin Ratio 1.1 (1.0-2.7) Lipase 122 U/L (73-393) Urine Opiates Screen Negative (NEGATIVE) Urine Barbiturates Screen Negative (NEGATIVE) Phencyclidine (PCP) Screen Negative (NEGATIVE) Urine Amphetamines Screen Negative (NEGATIVE) Urine Benzodiazepines Screen Negative (NEGATIVE) Urine Cocaine Screen Negative (NEGATIVE) Urine Marijuana (THC) Screen Negative (NEGATIVE) Serum Alcohol 429 mg/dL Last Vital Signs Date Time Temp Pulse Resp B/P (MAP) Pulse Ox O2 Delivery O2 Flow Rate FiO2 09/07/17 16:38 98.6 89 15 120/67 95 Room Air Disposition: ELOPED Condition: Improved Referrals: NOT CHOSEN IPA/MD,REFERRING (PCP) Patient Instructions: Alcohol Intoxication, [id number] Camilla Leonard Sep 07, 2017 20:43
== END 2017-09-07 16:40 | disposition left against medical advice (07) ==
LOC: EDBD 13:46 → EMR 14:02
DX: D61.818 Other pancytopenia (principal); R10.84 Generalized abdominal pain; F10.229 Alcohol dependence with intoxication, unspecified; K70.9 Alcoholic liver disease, unspecified; Y90.8 Blood alcohol level of 240 mg/100 ml or more; I10 Essential (primary) hypertension; F20.9 Schizophrenia, unspecified
CPT/HCPCS: 36415; 80053; 80307; 80329; 81003; 83690; 85025; 96361; 96374; 99284; J2405

== ENCOUNTER 2017-10-28 00:56 | Emergency (ER) | payer MEDICAID ==
[~2017-10-28] VITALS: Ht 175.3 cm; Wt 68.0 kg
[2017-10-28] MEDS ORDERED: Mylanta II UD 30ml ORAL ONE (01:15)
[2017-10-28 01:39] VITALS: BP 136/76
[2017-10-28 01:41] LABS: APPEARANCE,URINE CLEAR; BILIRUBIN, URINE NEGATIVE (NEGATIVE); COLOR,URINE PALE YELLOW; GLUCOSE, URINE (UA) NEGATIVE (NEGATIVE); KETONES,URINE NEGATIVE (NEGATIVE); LEUKOCYTE ESTERASE ,URINE NEGATIVE (NEGATIVE); NITRITE,URINE NEGATIVE (NEGATIVE); PH,URINE 6.5 (4.5-8.0); UROBILINOGEN,URINE NORMAL MG/DL (0.0-1.0)
[2017-10-28 01:42] LABS: HEMATOCRIT 29.6 % (42.0-52.0); HEMOGLOBIN 8.7 G/DL (14.2-18.0); MEAN CORPUSCULAR VOLUME 69 FL (80-99); PLATELET COUNT 127 K/UL (150-450); RED CELL DISTRIBUTION WIDTH 18.4 % (11.6-14.8); WHITE BLOOD COUNT 2.7 K/UL (4.8-10.8)
[2017-10-28 01:48] LABS: PROTEIN,URINE NEGATIVE (NEGATIVE)
[2017-10-28 01:58] LABS: ANION GAP 11 mmol/L (5-15); BLOOD UREA NITROGEN 6 mg/dL (7-18); CALCIUM 8.5 MG/DL (8.5-10.1); CARBON DIOXIDE 28 MMOL/L (21-32); CHLORIDE 103 MMOL/L (98-107); CREATININE 0.5 MG/DL (0.55-1.30); POTASSIUM 3.8 MMOL/L (3.5-5.1); SODIUM 142 MMOL/L (136-145)
[2017-10-28 02:04] LABS: ALANINE AMINOTRANSFERASE 52 U/L (12-78); ALBUMIN 3.9 G/DL (3.4-5.0); ALKALINE PHOSPHATASE 83 U/L (46-116); ASPARTATE AMINO TRANSFERASE 74 U/L (15-37); BILIRUBIN,TOTAL 0.4 MG/DL (0.2-1.0); CREATINE KINASE 213 U/L (26-308)
--- NOTE | 2017-10-28 02:17 | Emergency Room Report ---
History of Present Illness General Chief Complaint: Alcohol Intoxication Source: Patient, EMS Present Illness HPI Patient presents with epigastric pain. This has been for several days. He states it's related to drinking alcohol. He denies any vomiting, hematemesis, melena or hematochezia. He denies any fevers. He is been drinking a lot of alcohol today. He denies suicidal ideation, cough, rashes, dysuria, cough, chest pain, sore throat and headache. Pain rated at 6/10, constant, not radiating. No medicine taken. Seen here in past with alcohol abuse and abdominal pain. On psych meds. Also alleges last seizure was last week. Has been on dilantin in the past. Denies head trauma. Allergies: Coded Allergies: No Known Allergies (Unverified , 10/19/16) Patient History Past Medical History: see triage record Social History: Reports: smoking, alcohol use Social History Narrative alleges has place he lives Reviewed Nursing Documentation: PMH: Agreed, PSxH: Agreed Nursing Documentation-PMH Hx Hypertension: Yes Hx Cancer: Yes - Unknown Hx Gastrointestinal Problems: Yes - Pancreatitis, alcohol abuse Hx Seizures: Yes Review of Systems All Other Systems: negative except mentioned in HPI Physical Exam Vital Signs Date Time Temp Pulse Resp B/P (MAP) Pulse Ox O2 Delivery O2 Flow Rate FiO2 10/28/17 01:00 98.1 92 16 136/76 100 Room Air Sp02 EP Interpretation: reviewed, normal General Appearance: well appearing, no apparent distress, GCS 15 Head: normocephalic Eyes: bilateral eye Scleral Injection ENT: moist mucus membranes Neck: supple Respiratory: lungs clear, normal breath sounds Cardiovascular #1: regular rate, rhythm Cardiovascular #2: 2+ radial (R) Gastrointestinal: normal inspection, normal bowel sounds, no mass, non- distended, no guarding, no rebound, tenderness, scaphoid Musculoskeletal: back normal, normal range of motion Neurologic: alert, oriented x3, other - slurred speech Psychiatric: other - denial of problems, wants to eat Skin: normal inspection, warm/dry Medical Decision Making Diagnostic Impression: Primary Impression: Abdominal pain Qualified Codes: R10.13 - Epigastric pain Additional Impression: Alcohol abuse ER Course Patient presents with epigastric pain after drinking alcohol. Differential includes gastritis, pancreatitis, GERD, gastroenteritis amongst others. The patient will be evaluated with labs. He will get IV hydration and Pepcid. Labs are significant for normal white count and H&H. The patient's blood alcohol is in the 400s. Patient improved with IV hydration and insisted on the IV out and leaving. He left before I could speak to him. Ambulated apparently without ataxia. No SI or HI. Refused to take ACI. 2:55 Laboratory Tests Test 10/28/17 01:21 White Blood Count 2.7 K/UL (4.8-10.8) L Red Blood Count 4.30 M/UL (4.70-6.10) L Hemoglobin 8.7 G/DL (14.2-18.0) L Hematocrit 29.6 % (42.0-52.0) L Mean Corpuscular Volume 69 FL (80-99) L Mean Corpuscular Hemoglobin 20.3 PG (27.0-31.0) L Mean Corpuscular Hemoglobin Concent 29.5 G/DL (32.0-36.0) L Red Cell Distribution Width 18.4 % (11.6-14.8) H Platelet Count 127 K/UL (150-450) L Mean Platelet Volume 5.9 FL (6.5-10.1) L Neutrophils (%) (Auto) % (45.0-75.0) Lymphocytes (%) (Auto) % (20.0-45.0) Monocytes (%) (Auto) % (1.0-10.0) Eosinophils (%) (Auto) % (0.0-3.0) Basophils (%) (Auto) % (0.0-2.0) Prothrombin Time 10.0 SEC (9.30-11.50) Prothrombin Time INR 1.0 (0.9-1.1) PTT 27 SEC (23-33) Urine Color Pale yellow Urine Appearance Clear Urine pH 6.5 (4.5-8.0) Urine Specific [place] 1.010 (1.005-1.035) Urine Protein Negative (NEGATIVE) Urine Glucose (UA) Negative (NEGATIVE) Urine Ketones Negative (NEGATIVE) Urine Occult Blood Negative (NEGATIVE) Urine Nitrite Negative (NEGATIVE) Urine Bilirubin Negative (NEGATIVE) Urine Urobilinogen Normal MG/DL (0.0-1.0) Urine Leukocyte Esterase Negative (NEGATIVE) Sodium Level 142 MMOL/L (136-145) Potassium Level 3.8 MMOL/L (3.5-5.1) Chloride Level 103 MMOL/L (98-107) Carbon Dioxide Level 28 MMOL/L (21-32) Anion Gap 11 mmol/L (5-15) Blood Urea Nitrogen 6 mg/dL (7-18) L Creatinine 0.5 MG/DL (0.55-1.30) L Estimate Glomerular Filtration Rate > 60 mL/min (>60) Glucose Level 112 MG/DL (74-106) H Calcium Level 8.5 MG/DL (8.5-10.1) Total Bilirubin 0.4 MG/DL (0.2-1.0) Aspartate Amino Transferase (AST) 74 U/L (15-37) H Alanine Aminotransferase (ALT) 52 U/L (12-78) Alkaline Phosphatase 83 U/L (46-116) Total Creatine Kinase 213 U/L (26-308) Total Protein 7.7 G/DL (6.4-8.2) Albumin 3.9 G/DL (3.4-5.0) Globulin 3.8 g/dL Albumin/Globulin Ratio 1.0 (1.0-2.7) Lipase 209 U/L (73-393) Urine Opiates Screen Negative (NEGATIVE) Urine Barbiturates Screen Negative (NEGATIVE) Phenytoin (Dilantin) Level < 0.4 ug/mL (10-20) L Phencyclidine (PCP) Screen Negative (NEGATIVE) Urine Amphetamines Screen Negative (NEGATIVE) Urine Benzodiazepines Screen Negative (NEGATIVE) Urine Cocaine Screen Negative (NEGATIVE) Urine Marijuana (THC) Screen Positive (NEGATIVE) H Serum Alcohol 446 mg/dL Last Vital Signs Date Time Temp Pulse Resp B/P (MAP) Pulse Ox O2 Delivery O2 Flow Rate FiO2 10/28/17 03:04 88 16 130/68 100 Room Air 10/28/17 02:59 98.0 Status: improved Disposition: ELOPED Condition: Improved Scripts Acetaminophen (Tylenol) 325 Mg Tablet 325 MG ORAL Q6H Y for Prn Pain/Headache/Temp > 101, #20 TAB 0 Refills Prov: Dewey Rae M.D. 10/28/17 Famotidine (PEPCID) 20 Mg Tablet 20 MG ORAL DAILY, #30 TAB 0 Refills Prov: Dewey Rae M.D. 10/28/17 Referrals: NOT CHOSEN DAVID/,REFERRING (PCP) Dewey Rae M.D. Oct 28, 2017 02:17
[2017-10-28] MEDS ORDERED: TYLENOL325 MG ORAL (02:20)
[2017-10-28] MEDS ORDERED: PEPCID20 MG ORAL (02:20)
[2017-10-28 02:59] VITALS: BP 132/78
[2017-10-28 03:04] VITALS: BP 130/68
== END 2017-10-28 02:50 | disposition left against medical advice (07) ==
LOC: EDBD 00:56 → EDUNIT# 00:56 → EMR 01:16
DX: R10.13 Epigastric pain (principal); F10.10 Alcohol abuse, uncomplicated; I10 Essential (primary) hypertension; Z86.69 Personal history of other diseases of the nervous system and sense organs; Z87.19 Personal history of other diseases of the digestive system; Z85.9 Personal history of malignant neoplasm, unspecified
CPT/HCPCS: 36415; 80053; 80185; 80307; 80329; 81003; 82550; 83690; 85025; 85610; 85730; 96361; 96374; 99284; S0028